=== PATIENT | female | born 1940 | race Caucasian/White ===

== ENCOUNTER → 2017-07-08 | Outpatient (REF) | payer MEDICARE, BC ==
[~2017-07-08] MED LIST: ALLO100T PO; BYST10TA2 PO; COUM2TAB22 PO; DULO1CAP2 PO; DULO30CA PO; FENT10PA TD; FURO40TA2 PO; FURO80TA2 PO; GLIM2TA PO; GLIM4TAB PO; HYDR-3719 PO; ISOS30TA4 PO; KEPP250T5 PO; LANS30CA PO; LEVO100T5 PO; LEVO200T4 PO; LEVO88TA3 PO; LOSA100T36 PO; LOVE0.6I2 SC; MONT10TA2 PO; SIMV20TA2 PO; SIMV40TA2 PO; SODI650T PO; [UNRECOGNIZED DRUG - CODE] IJ
[2017-07-08 18:46] LABS: INR 1.99
== END ==
LOC: M LAB REF 13:25
PROVIDERS: ATTEND Nurse Practitioner
DX: Z86.718 Personal history of other venous thrombosis and embolism (principal); Z79.01 Long term (current) use of anticoagulants

== ENCOUNTER → 2017-07-16 | Outpatient (REF) | payer MEDICARE, BC ==
[2017-07-16 18:18] LABS: INR 2.33
== END ==
LOC: M LABDRAWC 16:57
PROVIDERS: ATTEND Nurse Practitioner
DX: I48.0 Paroxysmal atrial fibrillation (principal); Z79.01 Long term (current) use of anticoagulants

== ENCOUNTER → 2017-07-23 | Outpatient (REF) | payer MEDICARE, BC ==
[2017-07-23 18:35] LABS: INR 2.72
== END ==
LOC: M LABDRAWC 16:18
PROVIDERS: ATTEND Nurse Practitioner
DX: I48.0 Paroxysmal atrial fibrillation (principal)

== ENCOUNTER 2017-08-06 12:59 | Emergency (ER) | payer MEDICARE, BC ==
[2017-08-06] MEDS ORDERED: FURO80TA2 PO (13:27)
[2017-08-06] MEDS ORDERED: LOSA100T36 PO (13:27)
[2017-08-06] MEDS ORDERED: ALLO100T PO (13:27)
[2017-08-06] MEDS ORDERED: LANS30CA PO (13:27)
[2017-08-06] MEDS ORDERED: GLIM2TA PO (13:27)
[2017-08-06] MEDS ORDERED: BYST10TA2 PO (13:27)
[2017-08-06] MEDS ORDERED: LEVO200T4 PO (13:27)
[2017-08-06] MEDS ORDERED: HYDR-3719 PO (13:27)
[2017-08-06] MEDS ORDERED: FENT10PA TD (13:27)
[2017-08-06] MEDS ORDERED: DULO30CA PO (13:27)
[2017-08-06] MEDS ORDERED: MONT10TA2 PO (13:27)
[2017-08-06] MEDS ORDERED: SIMV40TA2 PO (13:27)
[2017-08-06] MEDS ORDERED: [UNRECOGNIZED DRUG - CODE] IJ (13:27)
[2017-08-06] MEDS ORDERED: COUM2TAB22 PO (13:27)
--- NOTE | 2017-08-06 14:32 | REP ---
LEFT KNEE SERIES: Five views of the left knee performed. There is no evidence of acute fracture or dislocation. There is moderately severe medial joint space narrowing with subchondral sclerosis and spurring. There is a moderate joint effusion. Vascular calcifications are seen posteriorly. IMPRESSION: No acute fracture or dislocation. Degenerative changes. Joint effusion. Signed by Cj Wakefield MD 08/06/2017 05:08 P
[2017-08-06 15:02] VITALS: BP 185/82
== END 2017-08-06 15:40 | disposition home or self-care (01) ==
LOC: M ED 12:59
DX: S83.92XA Sprain of unspecified site of left knee, initial encounter (principal); X50.1XXA Overexertion from prolonged static or awkward postures, initial encounter; Y92.099 Unspecified place in other non-institutional residence as the place of occurrence of the external cause; Y93.89 Activity, other specified; Y99.9 Unspecified external cause status; I51.9 Heart disease, unspecified; E11.9 Type 2 diabetes mellitus without complications; Z79.4 Long term (current) use of insulin; Z79.899 Other long term (current) drug therapy; Z79.01 Long term (current) use of anticoagulants; Z88.8 Allergy status to other drugs, medicaments and biological substances; Z88.5 Allergy status to narcotic agent; Z88.1 Allergy status to other antibiotic agents

== ENCOUNTER 2017-08-17 13:59 | Inpatient (IN) | payer MEDICARE, BC ==
[~2017-08-17] VITALS: Ht 148.6 cm; Wt 93.6 kg
[~2017-08-17 13:59] MED LIST changes: -DULO1CAP2 PO; +FENTANYL REMOVAL DOCUMENTATION MISC XX SCH; -FURO40TA2 PO; -GLIM4TAB PO; -ISOS30TA4 PO; -KEPP250T5 PO; -LEVO100T5 PO; -LEVO88TA3 PO; -LOVE0.6I2 SC; -SIMV20TA2 PO; -SODI650T PO
[2017-08-17] MEDS ORDERED: LORazepam 2 MG/ML VIAL (J2060) As Ordered ONE (14:06)
[2017-08-17] MEDS ORDERED: LORazepam 2 MG/ML VIAL (J2060) IV STA (14:08)
[2017-08-17] MEDS ORDERED: LABETALOL HCL 100 MG/20 ML VIAL IV STA ×2 (14:39→16:29)
[2017-08-17 15:16] LABS: BASO # 0.1 10^3/uL (0.0-0.2); BASO % 0.5 % (0.0-1.0); EOS % 0.3 % (0.0-3.0); LYMPH # 1.2 10^3/uL (1.5-4.5); LYMPH % 10.8 % (24.0-44.0); MEAN CORPUSCULAR HGB CONC 32.3 g/dl (32.0-36.5); MEAN CORPUSCULAR VOLUME 89.8 fl (80.0-96.0); MONO # 0.5 10^3/uL (0.0-0.8); MONO % 4.4 % (0.0-5.0); NEUTROPHILS # 8.9 10^3/uL (1.8-7.7); PLATELET COUNT, AUTOMATED 185 10^3/uL (150-450); RED CELL DISTRIBUTION WIDTH 12.9 % (11.5-14.5); WHITE BLOOD COUNT 10.9 10^3/uL (4.0-10.0)
[2017-08-17 15:18] LABS: ADD MANUAL DIFFER NO; ADD MORPHOLOGY? NO; DIFF SLIDE NUMBER 139
[2017-08-17] MEDS ORDERED: cefTRIAXone SOD 1 GM in D5W 50 ML IV ONE (15:30)
[2017-08-17 15:46] LABS: METHADONE URINE NEGATIVE (NEGATIVE)
[2017-08-17 15:52] LABS: ALBUMIN 3.4 GM/DL (3.2-5.2); ALBUMIN/GLOBULIN RATIO 0.83 (1.00-1.93); ALKALINE PHOSPHATASE 109 U/L (45-117); ALT/SGPT 20 U/L (12-78); ANION GAP 9 MEQ/L (8-16); AST/SGOT 17 U/L (15-37); BILIRUBIN,DIRECT 0.1 MG/DL (0.0-0.2); BILIRUBIN,TOTAL 0.5 MG/DL (0.2-1.0); BLOOD UREA NITROGEN 25 MG/DL (7-18); CALCIUM LEVEL 8.2 MG/DL (8.8-10.2); CARBON DIOXIDE LEVEL 29 MEQ/L (21-32); CHLORIDE LEVEL 97 MEQ/L (98-107); CREATININE FOR GFR 1.44 MG/DL (0.55-1.02); GLOMERULAR FILTRATION RATE 37.8 (>39); POTASSIUM SERUM 3.9 MEQ/L (3.5-5.1); SODIUM LEVEL 135 MEQ/L (136-145); TOTAL PROTEIN 7.5 GM/DL (6.4-8.2)
[2017-08-17 15:56] LABS: GLUCOSE, FASTING 456 MG/DL (83-110)
[2017-08-17] MEDS ORDERED: FENT10PA TD (16:11)
[2017-08-17] MEDS ORDERED: SIMV20TA2 PO (16:11)
[2017-08-17] MEDS ORDERED: COUM2TAB22 PO (16:11)
[2017-08-17] MEDS ORDERED: LANS30CA PO (16:11)
[2017-08-17] MEDS ORDERED: LEVO88TA3 PO (16:11)
[2017-08-17] MEDS ORDERED: HYDR-3719 PO (16:11)
[2017-08-17] MEDS ORDERED: BYST10TA2 PO (16:11)
[2017-08-17] MEDS ORDERED: ALLO100T PO (16:11)
[2017-08-17] MEDS ORDERED: LEVO100T5 PO (16:11)
[2017-08-17] MEDS ORDERED: GLIM4TAB PO (16:11)
[2017-08-17] MEDS ORDERED: DULO1CAP2 PO (16:11)
[2017-08-17] MEDS ORDERED: SODI650T PO (16:11)
[2017-08-17] MEDS ORDERED: LOSA100T36 PO (16:12)
[2017-08-17] MEDS ORDERED: MONT10TA2 PO (16:12)
[2017-08-17] MEDS ORDERED: FURO40TA2 PO (16:14)
[2017-08-17] MEDS ORDERED: PHENYTOIN INJection 1,000 MG in NS 100 ML IV ONE (16:45)
[2017-08-17] MEDS ORDERED: FENTANYL REMOVAL DOCUMENTATION MISC XX SCH (17:30)
[2017-08-17] MEDS ORDERED: GLUCAGON FOR INJ 1 MG VIAL (J1610) SC PRN (17:45)
[2017-08-17] MEDS ORDERED: GLUCOSE 4 GM CHEW TABLET PO PRN (17:45)
[2017-08-17] MEDS ORDERED: LORazepam 2 MG/ML VIAL (J2060) IV PRN (17:45)
[2017-08-17] MEDS ORDERED: DEXTROSE 50% 50 ML SYRINGE IV PRN (17:45)
[2017-08-17] MEDS ORDERED: fentaNYL 75 MCG/HR PATCH TD ONE (18:00)
[2017-08-17] MEDS: LR 1,000 ML IV SCH (18:33)
[2017-08-17 19:45] LABS: INR 2.76
--- NOTE | 2017-08-17 20:40 | HPE ---
DATE OF ADMISSION: 08/17/2017 PRIMARY CARE PROVIDER: Unknown. CHIEF COMPLAINT: Seizures. HISTORY OF PRESENT ILLNESS: The patient is a 76-year-old female who was recently seen in the emergency room on 08/06/2017. At that time, she presented with left knee pain and was found to have a left knee sprain. She was provided with a brace. She was noted to have difficulty with ambulating and was discharged home to self care. Since that time, the patient has reportedly been tired and had malaise over the last 4 days. The patient, at the time of my examination, appears to be postictal. She follows some basic commands and answers yes or no to questions on occasion after yelling in her ear very loud and sternal rubs. She tells me that she has had some urinary symptoms of late, but otherwise denies any other complaints, such as bowel symptoms, cough or sick contacts. Reported emergency medical services (EMS) was called for the patient's malaise and en route she had a 45 second seizure. Upon her presentation in the emergency room, she did have another seizure that lasted 1 to 2 minutes. She did receive IV Ativan and has had no further seizure since then. At the present time, she is awake, occasionally makes eye contact, and, as mentioned, answers some questions yes or no. Otherwise, much of the history is obtained via review of the medical record and the emergency department provider's hand-off. PAST MEDICAL HISTORY: 1. Hypertension. 2. 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 3. Asthma. 4. Peripheral vascular disease. 5. Gastroesophageal reflux disease (GERD). 6. Diabetes mellitus. 7. Obesity. 8. Gout. 9. Mood disorder. 10. Hypothyroidism. 11. Dyslipidemia. 12. Chronic pain. HOME MEDICATIONS: - Lasix 80 mg daily - hydrocodone/acetaminophen 10/325 mg every 4 hours as needed for pain - bisoprolol 30 mg daily - allopurinol 100 mg daily - duloxetine 30 mg daily - Fentanyl 100 mcg transdermally every third day - glimepiride 8 mg daily - levothyroxine 108 mcg daily - losartan 100 mg daily - Singulair 10 mg at night - nebivolol 10 mg by mouth twice a day - simvastatin 20 mg by mouth at night - sodium bicarbonate 650 mg at night - Coumadin 2 mg as directed ALLERGIES: NEOSPORIN, BEE STINGS, MOLD, FEATHER, WOOL, DIAZIDE, CARDIZEM, PLENDIL, AMINOGLYCOSIDE, BACITRACIN, DILTIAZEM, HYDROCHLOROTHIAZIDE/TRIAMTERENE, MORPHINE, NEOMYCIN, PHENOL, POLYMYXIN B, LINEZOLID, LIRAGLUTIDE. PAST SURGICAL HISTORY: Hysterectomy, cholecystectomy, umbilical hernia repair, tubal ligation, cataract surgery. SOCIAL HISTORY: She is a . She is reportedly visiting here family here from [place]. FAMILY HISTORY: Noncontributory. REVIEW OF SYSTEMS: Negative other than history of present illness. PHYSICAL EXAMINATION: Blood pressure on arrival was 221/102, at the present time it is 141/64, heart rate 97, respiratory rate 16, oxygen saturation 97% on 2 liters nasal cannula. GENERAL: She is an obese, elderly, female lying flat in bed. She does not appear to be in any acute distress whatsoever; however, she is lethargic and appears postictal. HEENT: Pupils are equal, round and reactive to light. She has dry mucous membranes. No elevation in her central venous pressure. CARDIOVASCULAR EXAM: S1, S2. She was not tachycardic at the time of my examination. RESPIRATORY EXAM: Clear; however, poor respiratory effort. She was not cooperative with examination. ABDOMINAL EXAM: Obese. Bowel sounds present. The abdomen is soft and nontender. She does not recoil to palpation. EXTREMITIES: No clubbing, cyanosis or appreciable edema. LABORATORY STUDIES: WBC 10.5, hemoglobin 14.2, platelet count 185. Chemistry panel: Sodium 135, potassium 3.9, chloride 97, bicarbonate 29, BUN 25, creatinine 1.4, unclear what her baseline is. Fasting glucose is 456. One set of cardiac enzymes are negative. TSH within normal limits. Toxicology is positive for opiates, otherwise fairly unremarkable. UA was grossly abnormal with 168 WBCs, 2+ leukocyte esterase and 3+ bacteria. Urine culture is pending. One blood culture is pending. The patient did have a CT scan of her head, which revealed chronic changes. She did have a portable chest x-ray that was preliminary read as negative. ASSESSMENT AND PLAN: This is a 76-year-old female who presented status post seizure with an abnormal UA. 1. Seizure, the etiology remains unclear. There does not appear to be any new medications which are suspect. She does not have an alcohol history. Her electrolytes do not appear to be grossly abnormal that would cause this. I have ordered a stat MRI of the brain. She has received phenytoin in the emergency room. Contact Dr. Ross, the neurology service will see the patient in consultation. The patient was significantly hypertensive, it is possible that this is secondary to hypertensive encephalopathy. This could be related to a urinary tract infection (UTI) and may not have been tolerating orally and unable to keep her medications down. At this time, in the emergency room, she has received labetalol times two and her blood pressure is improved. We will continue her home medications orally as she is waking up and provide additional medications if needed. EEG has been ordered. We will have her admitted to the progressive care unit (PCU) with neuro checks. We will get a second set of blood cultures and continue to monitor cardiac enzymes. 2. Abnormal UA. As mentioned above, the patient may have a urinary tract infection. I will empirically cover her with ceftriaxone, which was started in the emergency room. She does have leukocytosis and grossly abnormal urinalysis. 3. Diabetes. Her fingerstick is uncontrolled at this time with an elevated glucose without an anion gap. I will place her on sliding scale insulin and consistent carbohydrate, 2-gram sodium diet. Continue her oral agents as well. 4. Chronic kidney disease. It is unclear what her baseline is. I suspect that this is likely chronic. She may be somewhat dehydrated. She has dry mucous membranes at this time. I will hold her diuretic and continue to monitor her renal function. 5. Gastroesophageal reflux disease (GERD). Continue with proton pump inhibitor. 6. Chronic pain. Continue with her fentanyl patch at a lower dose and her other opiate medications on standby as needed as she wakes up. I do not want to oversedate this patient. 7. Gout. Continue with allopurinol. 8. Hypothyroidism. Continue with levothyroxine. 9. Dyslipidemia. Continue with simvastatin. 10. History of deep vein thrombosis (DVT) and multiple DVTs and pulmonary embolisms. The patient is on Coumadin. I will check an INR. Titrate for a goal INR of 2 to 3. 11. Seasonal allergies. Continue with Singulair. DISPOSITION: The patient is admitted to the progressive care unit (PCU) to Dr. Anderson's service. Her clinical status is guarded.
--- NOTE | 2017-08-17 21:10 | REPUSA ---
MRI of the brain. Clinical history: seizure. Technique: Multiecho multiplanar MRI images of the brain were obtained without administration of cont rast. Diffusion weighted images with ADC mapping was also obtained. Findings: The ventricles and sulci are symmetric bilaterally. The brain parenchyma demonstrates scattered areas of T2 hyperintensity in the periventricular and subcortical white matter bilaterally. There is no mi dline shift, mass effect, or extra-axial fluid collection. The midline intracranial structures do not demonstrate any gross abnormalities. The cervical cranial junction is intact. The orbits are unremar kable. The visualized paranasal sinuses and mastoid air cells are clear. The osseous structures and s uperficial soft tissues are unremarkable. The vascular structures demonstrate appropriate flow voids. Impression: No acute hemorrhage or infarct. Findings are consistent with mild chronic small vessel is chemic disease and age-related atrophy.
[2017-08-17 22:57] VITALS: BP 148/63
[2017-08-17] MEDS: HumaLOG INSULIN (NovoLOG) PER UNIT SC SCH (23:38)
[2017-08-17] MEDS: SIMVASTATIN 20 MG TAB PO SCH (23:38)
[2017-08-17] MEDS: WARFARIN SOD 2 MG TAB PO SCH (23:38)
[2017-08-17] MEDS: MONTELUKAST 10 MG TAB PO SCH (23:38)
[2017-08-17] MEDS: NEBIVOLOL 5 MG TAB (BYSTOLIC) PO SCH (23:43)
[2017-08-18] VITALS (7 sets, daily range): BP systolic 122–176; BP diastolic 52–85
[2017-08-18] MEDS: LOSARTAN 50 MG TAB PO SCH ×2 (00:58→08:49)
[2017-08-18] MEDS: PANTOPRAZOLE 40MG INJ (PROTONIX) (C9113) IV SCH ×2 (00:58→08:49)
[2017-08-18] MEDS: SODIUM BICARBONATE 325 MG TAB PO SCH ×2 (01:00→23:32)
[2017-08-18] MEDS: PHENAZOPYRIDINE 100 MG TAB PO SCH ×3 (03:56→23:31)
[2017-08-18 04:02] LABS: MEAN CORPUSCULAR HEMOGLOBIN 29.1 pg (27.0-33.0); MEAN CORPUSCULAR HGB CONC 32.7 g/dl (32.0-36.5); MEAN CORPUSCULAR VOLUME 89.1 fl (80.0-96.0); RED CELL DISTRIBUTION WIDTH 13.1 % (11.5-14.5); WHITE BLOOD COUNT 12.6 10^3/uL (4.0-10.0)
[2017-08-18 04:23] LABS: CALCIUM LEVEL 8.4 MG/DL (8.8-10.2); CREATININE FOR GFR 1.37 MG/DL (0.55-1.02); POTASSIUM SERUM 3.5 MEQ/L (3.5-5.1)
[2017-08-18] MEDS: LEVOTHYROXINE 100MCG TABLET (0.1MG) PO SCH (06:33)
[2017-08-18] MEDS: LEVOTHYROXINE 88MCG TABLET (0.088 MG) PO SCH (06:33)
--- NOTE | 2017-08-18 07:36 | REP ---
REASON: Dyspnea and altered mental status. PRIORS: None. FINDINGS: The technique utilized in obtaining the radiograph has magnified the cardiac silhouette and accentuated the interstitial markings. The superior mediastinal structures are midline. The cardiac silhouette is unremarkable in size, shape, and position. The diaphragmatic surfaces of the lungs are regular, and the costophrenic angles are clear. The pulmonary sorto are clear. The imaged osseous structures are intact. IMPRESSION: There is no acute cardiopulmonary disease. Cardiomegaly cannot be ruled out due to technique. Signed by Praful Verma DO 08/18/2017 12:09 P
--- NOTE | 2017-08-18 07:56 | REP ---
REASON: Altered mental status. PRIORS: None. There is ventricular and sulcal prominence slightly advanced for the patient's age of 76 years. There is no evidence of an acute intracranial hemorrhagic or nonhemorrhagic event. There is no shift of the midline structures. The paranasal sinuses and mastoid air cells are clear. IMPRESSION: Cerebral and cerebellar atrophy. Deep white matter ischemic changes. No evidence of acute disease. Signed by Praful Verma DO 08/18/2017 12:10 P
[2017-08-18] MEDS: NEBIVOLOL 5 MG TAB (BYSTOLIC) PO SCH ×2 (08:49→23:31)
[2017-08-18] MEDS: DULoxetine 30 MG CAP (CYMBALTA) PO SCH (08:50)
[2017-08-18] MEDS: ALLOPURINOL 100 MG TAB PO SCH (08:50)
[2017-08-18] MEDS: GLIMEPIRIDE 2 MG TAB PO SCH (08:50)
[2017-08-18] MEDS: PERCOCET 5MG/325MG TAB PO PRN ×2 (08:51→16:43)
[2017-08-18] MEDS: HumaLOG INSULIN (NovoLOG) PER UNIT SC SCH ×4 (08:53→21:00)
[2017-08-18] MEDS: LR 1,000 ML IV SCH ×2 (08:53→21:10)
--- NOTE | 2017-08-18 09:00 | ECGEPIP ---
Stationary ECG Study [facility] - ED Test Date: 2017-08-17 Pat Name: KASIE GROSS Department: Room: - Gender: F Punching Machine Operator: MED : 1940 Requested By: JORGE Cannon Order Number: [id number] Reading MD: Nikunj Mehta Measurements Intervals [place] Rate: 103 P: 29 LA: 191 QRS: -35 QRSD: 89 T: -4 QT: 364 QTc: 477 Interpretive Statements SINUS TACHYCARDIA WITH BORDERLINE FIRST DEGREE AV BLOCK LEFT VENTRICULAR HYPERTROPHY AND ST-T CHANGE INFERIOR MYOCARDIAL INFARCTION, OF INDETERMINATE AGE NO PRIORS Electronically Signed On 08-18-2017 9:00:12 EDT by Nikunj Mehta
--- NOTE | 2017-08-18 10:37 | ECGEPIP ---
Stationary ECG Study [facility] Test Date: 2017-08-18 Pat Name: KASIE GROSS Department: Room: [place] [address] Gender: F Data Mining Analyst: APOLINAR : 1940 Requested By: MICHA DANIEL Order Number: [id number] Reading MD: Sheba Leary Measurements Intervals [place] Rate: 80 P: -24 NM: 164 QRS: -31 QRSD: 90 T: -17 QT: 393 QTc: 456 Interpretive Statements SINUS RHYTHM LEFT AXIS DEVIATION VOLTAGE CRITERIA FOR Left ventricular hypertrophy PRWP NONSPECIFIC ST & T-WAVE ABNORMALITY LATERALLY IMPROVED C/W 08/17/17 Electronically Signed On 08-18-2017 10:37:00 EDT by Sheba Leary
--- NOTE | 2017-08-18 12:39 | IPNPDOC ---
Subjective Date Seen The patient was seen on 08/18/17. Subjective Chief Complaint/HPI The patient is a 76-year-old female admitted with a reason for visit of Seizure. Patient was seen and examined today sitting in a chair next to bedside. She was visibly upset and crying at the start of the exam because she could not get a hold of her family due to the fact that her cell phone was and she had no access to their phone numbers. She calmed down quickly and stated that she remembered coming to the hospital yesterday, but that she never had a seizure. When asked why she was brought to the hospital she stated that her sister was worried about her because she had not gotten up the day before, and made her come in. She stated that she was treated for a UTI 2 weeks ago with a 10 day course of Levaquin prescribed by [facility], and is still complaining of dysuria today. She states she slept well last night and had no acute complaints other than her concern over reaching her family members. Her nurse reported the patient did not sleep well last night secondary to pain ranked 10/10 in right flank and suprapubic areas, patient's Fernandez was removed last night and she refused to have it reinserted. No events on telemetry. ENT: Denies: Head Aches Pulmonary: Denies: Pleuritic Chest Pain Cardiovascular: Denies: Chest Pain, Lt Headedness Gastrointestinal: Reports: Nausea, Abdominal Pain (suprapubic), Denies: Vomiting, Constipation (colostomy) Musculoskeletal: Reports: Back Pain (right flank ) Psych: Reports: Anxiety Objective Physical Examination General Exam: Positive: Alert, Cooperative, Moderate Distress Eye Exam: Positive: Conjunctiva & lids normal, Negative: Ptosis ENT Exam: Positive: Atraumatic, Mucous membr. moist/pink Neck Exam: Positive: Supple, Negative: JVD Chest Exam: Positive: Clear to auscultation, Normal air movement, Negative: Rales, Rhonchi, Wheezing Heart Exam: Positive: Rate Normal, Regular Rhythm, Normal S1, Normal S2 Telemetry: Positive: Sinus Abdomen Exam: Positive: Normal bowel sounds, Soft, Tenderness (suprapubic region), Other (colostomy bag in place on right ) Extremity Exam: Positive: Normal pulses, Negative: Tenderness (negative rivera sign BL) Skin Exam: Positive: Nl turgor and temperature Psych Exam: Positive: Anxiety, Oriented x 3, Negative: Mood NL, Memory Intact Other physical findings CVA tenderness on right Assessment /Plan Assessment 1. Seizure. Patient had two witnessed seizures yesterday, one en route to [facility] and one in the ED. Patient has not had any seizures since admission. She is being monitored on telemetry, which has been sinus rhythm. Per patient, she has recently completed a 10 day course of Levaquin for a UTI. She is still complaining of dysuria, and her UA is indicative of a current UTI. She is also now complaining of intense right flank pain with a positive Marco Antonio's punch sign, demonstrating right CVA tenderness. She has been afebrile since admission, but her white count has been trending upwards from 10.9 yesterday to 12.6 today. Blood cultures and urine cultures are pending. Her seizures could be secondary to sepsis from a complicated UTI/pyelonephritis. Will continue broad spectrum treatment with Ceftriaxone until cultures return with sensitivities. Pyridium as needed for dysuria. Lorazepam as needed for seizures. Sodium levels have been within normal limits. An EEG was performed this morning, results pending. Neurology has been consulted. Appreciate their assistance. 2. UTI. As described above, patient had recently completed a course of Levaquin and is still experiencing symptoms of a UTI. Nursing has reported her urine as "thick and pink." Her Fernandez was removed last night by nursing and patient refused to have another reinserted. She reports she is able to urinate on her own. Bladder scans with straight cath for >300ml residual have been ordered. Patient is being treated empirically with Ceftriaxone until culture and sensitivities come back. 3. Elevated troponin. EKG performed yesterday in the ED demonstrates a borderline 1st degree AV block and an inferior NH of indeterminant age. Echo ordered to check if there is any wall motion abnormality. 4. Mental status changes. Patient is fully oriented to person, place, and time, however she does not remember having her seizures, her pain last night, or being examined this morning. Her confusion may be secondary to sepsis from her unresolving UTI. MMSE will be performed later today. 5. Kidney injury, likely CKD. Her GFR is improving at 40 today from 37.8 yesterday. BUN and Cr are elevated at 32 and 1.37, respectively. Her baseline renal function is unknown. It is suspected the kidney injury may be chronic. Continue trending BUN, Cr, GFR. 6. Diabetes Mellitus. Fasting blood glucose was 456 yesterday. Today it is 220 , without an elevated anion gap. Patient is on a consistent carbohydrate diet. An A1c has been ordered. Continue home medications and insulin. 7. GERD. Continue home Protonix. 8. Chronic pain. At the time of exam patient was not complaining of any pain, however nursing reported she was in a significant amount of pain last night amenable to Percocet. Continue home Fentanyl patch and Percocet as needed. Will get CT of abdomen and pelvis without contrast to make sure there is no other etiology escalating the pain. 9. Gout. Continue home allopurinol. 10. Hypothyroid. Continue home Synthroid. 11. Dyslipidemia. Continue home statin. 12. Hypertension. Upon admission her blood pressure was 221/102. Patient states she takes her blood pressure medications regularly. This morning her blood pressure was 123/84. Continue home Losartan and Nebivolol. 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 Continue home Coumadin to therapeutic INR between 2-3. Yesterday patient's INR was at 2.76. 14. Unspecified mood disorder. Continue home Duloxetine. 15. DVT prophylaxis. Therapeutic Coumadin, knee-high sequentials. Plan/VTE VTE Prophylaxis Ordered?: Yes (coumadin) Plan/Urinary Catheter Urinary Catheter: D/C Fernandez VS, I&O, 24H, Fishbone Vital Signs/I&O Vital Signs Date Time Temp Pulse Resp B/P (MAP) Pulse Ox O2 Delivery O2 Flow Rate FiO2 08/18/17 08:51 18 08/18/17 08:00 97.8 73 126/52 (76) 96 Room Air 08/18/17 04:00 2.0 I&O- Last 24 Hours up to 6 AM 08/19/17 05:59 Intake Total 375 ml Output Total 100 ml Balance 275 ml Laboratory Data 24H LABS Laboratory Tests 2 08/17/17 14:24: Bedside Glucose (Misc Panel) 440H 08/17/17 14:48: Immature Granulocyte % (Auto) 2.0H, White Blood Count 10.9H, Red Blood Count 4.90, Hemoglobin 14.2, Hematocrit 44.0, Mean Corpuscular Volume 89.8, Mean Corpuscular Hemoglobin 29.0, Mean Corpuscular Hemoglobin Concent 32.3, Red Cell Distribution Width 12.9, Platelet Count 185, Neutrophils (%) (Auto) 82.0H, Lymphocytes (%) (Auto) 10.8L, Monocytes (%) (Auto) 4.4, Eosinophils (%) (Auto) 0.3, Basophils (%) (Auto) 0.5, Neutrophils # (Auto) 8.9H, Lymphocytes # (Auto) 1.2L, Monocytes # (Auto) 0.5, Eosinophils # (Auto) 0.0, Basophils # (Auto) 0.1, Immature Granulocyte # (Auto) 0.2H, Nucleated Red Blood Cells % (auto) 0.0, Anion Gap 9, Glomerular Filtration Rate 37.8L, Calcium Level 8.2L, Aspartate Amino Transf (AST/SGOT) 17, Alanine Aminotransferase (ALT/SGPT) 20, Alkaline Phosphatase 109, Total Bilirubin 0.5, Direct Bilirubin 0.1, Total Creatine Kinase 41, Creatine Kinase MB 1.9, Creatine Kinase MB Relative Index 4.63H, Troponin I < 0.02, Total Protein 7.5, Albumin 3.4, Albumin/Globulin Ratio 0.83L , Thyroid Stimulating Hormone (TSH) 1.140, Ethyl Alcohol Level 0.005 08/17/17 14:55: Urine Appearance HAZY, Urine Color MINNIE, Urine pH 5.0, Urine Specific [place] 1.024, Urine Protein 2+H, Urine Glucose (UA) 3+H, Urine Ketones NEGATIVE, Urine Urobilinogen 2.0H, Urine Bilirubin NEGATIVE, Urine Leukocyte Esterase 2+H, Urine Blood 2+H, Urine Nitrite POSITIVE, Urine WBC (Auto) 168H, Urine RBC (Auto ) 17H, Urine Hyaline Casts (Auto) 0, Urine Bacteria (Auto) 3+H, Urine Squamous Epithelial Cells 0, Urine Sperm (Auto) , Urine Amphetamines Screen NEGATIVE, Urine Benzodiazepines Screen NEGATIVE, Urine Opiates Screen POSITIVEH, Urine Methadone Screen NEGATIVE, Urine Barbiturates Screen NEGATIVE, Urine Phencyclidine Screen NEGATIVE, Urine Cocaine Metabolite Screen NEGATIVE, Urine Cannabinoids Screen NEGATIVE 08/17/17 19:18: Prothrombin Time 30.3H, Prothromb Time International Ratio 2.76, Lipase 173 08/17/17 21:50: Troponin I 0.11#H 08/17/17 23:12: Bedside Glucose (Misc Panel) 391H 08/18/17 03:12: Troponin I 0.27#H, Anion Gap 9, Glomerular Filtration Rate 40.0, Blood Urea Nitrogen 32H, Creatinine 1.37H, Sodium Level 139, Potassium Level 3.5, Chloride Level 100, Carbon Dioxide Level 30, Calcium Level 8.4L 08/18/17 08:30: Troponin I 0.20#H, Total Creatine Kinase 55, Creatine Kinase MB 2.7, Creatine Kinase MB Relative Index 4.90H CBC/BMP Laboratory Tests 08/17/17 14:48 Red Blood Count 4.90, Mean Corpuscular Volume 89.8, Mean Corpuscular Hemoglobin 29.0, Mean Corpuscular Hemoglobin Concent 32.3, Red Cell Distribution Width 12.9 , Neutrophils (%) (Auto) 82.0 H, Lymphocytes (%) (Auto) 10.8 L, Monocytes (%) ( Auto) 4.4, Eosinophils (%) (Auto) 0.3, Basophils (%) (Auto) 0.5, Neutrophils # ( Auto) 8.9 H, Lymphocytes # (Auto) 1.2 L, Monocytes # (Auto) 0.5, Eosinophils # ( Auto) 0.0, Basophils # (Auto) 0.1 08/18/17 03:12 Red Blood Count 4.57, Mean Corpuscular Volume 89.1, Mean Corpuscular Hemoglobin 29.1, Mean Corpuscular Hemoglobin Concent 32.7, Red Cell Distribution Width 13.1 , Calcium Level 8.4 L Microbiology Microbiology 08/17/17 Blood Culture, Received Pending 08/17/17 Blood Culture, Received Pending 08/17/17 Blood Culture, Received Pending 08/17/17 Urine Culture, Received Pending GME ATTESTATION GME ATTESTATION My preceptor for this patient encounter was physically present in the building during the encounter and was fully available. As needed, all aspects of the patient interview, examination, medical decision making process, and medical care plan development were reviewed and approved by the preceptor. Preceptor is aware and concurs with the plan as stated in the body of this note and will attest to such by his/her cosignature. ANIL ARELLANO DO Aug 18, 2017 10:26
--- NOTE | 2017-08-18 13:41 | REP ---
CT ABDOMEN PELVIS WITHOUT IV OR ORAL CONTRAST: HISTORY: Lower abdominal pain. CT FINDINGS: Preliminary digital child adolescent care radiograph shows an unremarkable bowel gas pattern. The lung bases are clear except for some mild bibasilar fibrosis. The liver and the spleen are normal in size homogeneous in texture. There are clips in the gallbladder fossa post cholecystectomy. No adrenal lesion is seen on either side. No pancreatic abnormality is observed. Vascular calcification is noted. Mild left renal atrophy is seen. No hydronephrosis is observed. There is a 3 mm calculus in the left renal pelvis. No bladder calculus is seen. The patient is status post hysterectomy. A short but normal appearing appendix is seen in the pelvis. There is a colostomy in the right upper quadrant with a parastomal hernia containing a portion of this stomach body and loops of unobstructed appearing colon. No small or large bowel dilation is seen. There is a ventral hernia below the umbilicus, which is broad-based and contains large and small bowel loops again without evidence of obstruction. No bony destructive lesion is seen. There are some degenerative changes in the lumbar spine. IMPRESSION: Status post colostomy right upper quadrant with peristomal hernia containing stomach and large intestine. Ventral hernia and below the level of the umbilicus anteriorly. No evidence of obstruction. There is a 3 mm nonobstructive calculus in the renal pelvis on the left. No acute intra-abdominal abnormality. Signed by Silver Schmitz MD 08/18/2017 02:14 P
[2017-08-18] MEDS: cefTRIAXone SOD 1 GM in D5W 50 ML IV SCH (16:42)
[2017-08-18] MEDS: WARFARIN SOD 2 MG TAB PO SCH (16:43)
--- NOTE | 2017-08-18 18:00 | EEG ---
DATE OF PROCEDURE: 08/18/2017 REFERRING PHYSICIAN: Dr. Vicente Anderson DIAGNOSIS: Seizure. EEG NUMBER: [id number] HISTORY: Patient is a 76-year-old woman who was admitted at [facility] due to seizures. She was found to have severe hypertension at the time of her admission. She had two seizures. This EEG was done to rule out epileptic potential. She is currently taking labetalol, fentanyl, Ativan, Dilantin, ceftriaxone, glimepiride, Cymbalta, simvastatin, etc. TECHNICAL DESCRIPTION: This digital EEG was recorded by 21 scalp, ear and two EKG electrodes and was reviewed in bipolar and referential montages following reformatting in 10-20 international electrode placement system. INTERPRETATION: The patient was noted to be in awake and drowsy states during this EEG. Resting awake background rhythm consisted of 6 Hz theta activity measuring 15-40 microvolts in amplitude. Stage I and II sleep were reviewed and were symmetric bilaterally. Hyperventilation could not be performed. Photic stimulation remained unremarkable. EKG revealed normal sinus rhythm. Right central and parietal intermittent delta slowing and epileptiform abnormalities and discharges were noted. CONCLUSION: This EEG in awake, drowsy states, stage I and II sleep is abnormal due to presence of right central and parietal intermittent slowing and epileptiform discharges consistent with focal cortical, structural or functional abnormality with epileptic potential. Clinical correlation is recommended. Edited 08/18/2017
[2017-08-18] MEDS ORDERED: risperiDONE 0.5 MG TAB PO PRN (18:30)
[2017-08-18] MEDS ORDERED: LORazepam 1 MG TAB PO ONE (18:30)
--- NOTE | 2017-08-18 20:11 | ECHO ---
DATE OF PROCEDURE: 08/18/2017 REFERRING PHYSICIAN: Dr. Anderson. Study was performed on 08/18/2017 for indication hypertensive heart disease. The patient measures 154 cm and weighs 84 kg. DIMENSIONS: IVS: 1.4 LV: 3.7 LVPW: 1.4 LA: 3.5 Aorta: 3.2 E prime septal: 3.8 cm/s E prime lateral: 5.3 cm/s IVC: 0.6 FINDINGS: The study is of very limited technical quality with only poor visualization of ventricles and valves. Left ventricle is of normal size and hyperdynamic contractility. I estimate left ventricular ejection fraction (LVEF) 65-70%. I certainly cannot rule out segmental wall motion abnormalities but it seems unlikely. Right ventricle was poorly visualized but appears grossly normal. Both atria appear grossly normal. Aortic valve is sclerotic but the visualization was poor and I cannot comment much more on its structure, same applies for mitral valve - it has some degenerative abnormalities but mobility seems to be grossly preserved. Tricuspid valve appears normal. Pulmonic valve was not visualized. Small amount of pericardial fat pad is noted. Inferior vena cava is normal caliber. Aortic root is normal. Aortic arch and abdominal aorta were not seen. Doppler interrogation reveals no aortic stenosis and trivial insufficiency. There is also no significant mitral valve disease. Mild tricuspid insufficiency is seen. Calculated pulmonary artery pressure is at least in 30s corresponding to mild pulmonary hypertension. Pulmonic valve was not well seen. Mitral inflow pattern and tissue Doppler imaging of mitral annulus revealed grade 1 diastolic dysfunction. CONCLUSIONS: 1. The study is of poor technical quality. 2. Normal left ventricular (LV) size with mild to moderate left ventricular hypertrophy (LVH) and hyperdynamic LV systolic function. Grade 1 diastolic dysfunction. 3. No significant valvular disease. 4. Normal central venous pressure and likely mild pulmonary hypertension. COMMENT: Subacute bacterial endocarditis (SBE) prophylaxis is not recommended. The study is consistent with hypertensive heart disease.
--- NOTE | 2017-08-18 23:24 | CR ---
DATE OF CONSULTATION: 08/18/2017 REASON FOR CONSULTATION: New onset seizure. HISTORY OF THE PRESENT ILLNESS: Luann Solorio is a 76-year-old female with recent hospitalization for difficulty ambulating. During the hospital ride, the patient was noted to have generalized tonic-clonic seizure lasting about 45 seconds with a recurrent seizure in the emergency department lasting about 1-2 minutes. The patient was given Ativan, and the seizure activity did stop. So far, the patient did have an MRI the brain showing mild small vessel ischemic disease without any stroke. Age-related atrophy was noted. The patient had a urine toxicology positive for opiates for which she is prescribed. Her urinalysis was positive with positive nitrite, leukocyte esterase, WBCs were elevated with bacteria of 3+. The patient was started on ceftriaxone. The patient did have elevated troponins, which has come down and are being monitored closely. Her hemoglobin A1c is significantly elevated at 9.6. The patient had slightly elevated creatinine and BUN. The patient herself states that she has never had seizures in the past. She does have waxing, waning symptoms of confusion while in the hospital and was noted to accidentally pull out her colostomy bag. The patient is currently in [facility] for safety prevention. PAST MEDICAL HISTORY: Hypertension. 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 Asthma. Peripheral vascular disease. Gastroesophageal reflux disease. Diabetes mellitus. Obesity. Gout. Mood disorder. Hypothyroidism. Dyslipidemia. Chronic pain. HOME MEDICATIONS: - Lasix 80 mg by mouth daily - hydrocodone/acetaminophen 10/325 mg every 4 hours as needed pain - bisoprolol 30 mg by mouth daily - allopurinol 100 mg by mouth daily - duloxetine 30 mg by mouth daily - fentanyl 100 mcg transdermal patch every 72 hours - glimepiride 8 mg by mouth daily - levothyroxine 108 mcg by mouth daily - losartan 100 mg by mouth daily - Singulair 10 mg by mouth nightly - nebivolol 10 mg by mouth twice a day - simvastatin 20 mg by mouth nightly - sodium bicarbonate 650 mg by mouth nightly - Coumadin 2 mg by mouth as directed ALLERGIES: NEOSPORIN, CARDIZEM, DIAZIDE, PLENDIL, AMINOGLYCOSIDES, BACITRACIN, DILTIAZEM, HYDROCHLOROTHIAZIDE/TRIAMTERENE, MORPHINE, NEOMYCIN, PHENOL, POLYMYXIN B, LINEZOLID, LIRAGLUTIDE. BEE STINGS, MOLD, FEATHERS, WOOL. PAST SURGICAL HISTORY: Hysterectomy. Cholecystectomy. Umbilical hernia repair. Tubal ligation. Cataract surgery. SOCIAL HISTORY: The patient denies use any tobacco, alcohol or illicit drugs. FAMILY HISTORY: Noncontributory. REVIEW OF SYSTEMS: 14-point review of systems obtained and is negative except as per history of the present illness. PHYSICAL EXAMINATION: Blood pressure is 148/56, pulse rate 74, respiratory rate is 18, oxygenation is 95% on room air, temperature is 98 degrees Fahrenheit. The patient is alert, oriented to person, place and time and location. The patient is cooperative during the examination. Pupils are 2-1/2 mm, round, reactive to light. Extraocular movements are intact in all directions. Sensation V1, V2, V3 is intact to light touch. No facial asymmetry to activation. Palate elevates symmetrically. Tongue is midline. No weakness of sternocleidomastoids bilaterally. There is no pronator drift. Strength is 5/5 including bilateral deltoids, biceps, triceps, iliopsoas, quadriceps, anterior tibialis. Sensory is intact to light touch in all four extremities. Coordination: Normal [id number] without any signs of ataxia or dysmetria. There is no tremor. Seizure activity was not noted during the encounter. ASSESSMENT: 1. New onset generalized tonic-clonic seizure. 2. EEG completed earlier today is abnormal with epileptic potential in the central and parietal region. 3. Underlying urinary tract infection, currently on ceftriaxone. 4. Elevated troponins, rule out myocardial infarction. PLAN: 1. Start levetiracetam 500 mg by mouth twice a day in the setting of new onset seizure and abnormal EEG. 2. Continue treating underlying urinary tract infection as per primary care, continue supportive care. The patient was initially noted to have severely high blood pressure with systolic 221 over diastolic 102 during the emergency room stay. Presently, her blood pressure is well controlled. There does not appear to be a stroke. The patient does appear to have some waxing and waning mental status changes, possibly delirium in the setting of urinary tract infection, new antibiotics. 3. Recommend physical therapy (PT), occupational therapy (OT) evaluation.
[2017-08-18] MEDS: levETIRAcetam 250MG TABLET (KEPPRA) PO SCH (23:30)
[2017-08-18] MEDS: MONTELUKAST 10 MG TAB PO SCH (23:31)
[2017-08-18] MEDS: SIMVASTATIN 20 MG TAB PO SCH (23:32)
[2017-08-19] VITALS (9 sets, daily range): BP systolic 138–188; BP diastolic 68–100; PULSE 80
[2017-08-19] MEDS ORDERED: LORazepam 2 MG/ML VIAL (J2060) IM PRN (00:15)
[2017-08-19 05:32] LABS: MEAN CORPUSCULAR HEMOGLOBIN 28.8 pg (27.0-33.0); MEAN CORPUSCULAR VOLUME 87.4 fl (80.0-96.0); RED CELL DISTRIBUTION WIDTH 12.9 % (11.5-14.5); WHITE BLOOD COUNT 7.9 10^3/uL (4.0-10.0)
[2017-08-19] MEDS: LEVOTHYROXINE 100MCG TABLET (0.1MG) PO SCH (05:44)
[2017-08-19] MEDS: LEVOTHYROXINE 88MCG TABLET (0.088 MG) PO SCH (05:44)
[2017-08-19 05:57] LABS: CALCIUM LEVEL 8.1 MG/DL (8.8-10.2); CREATININE FOR GFR 1.02 MG/DL (0.55-1.02); GLOMERULAR FILTRATION RATE 56.2 (>39); POTASSIUM SERUM 3.2 MEQ/L (3.5-5.1)
[2017-08-19] MEDS ORDERED: POTASSIUM CHLORIDE 10 MEQ SR TABLET PO ONE ×2 (06:30→09:00)
[2017-08-19] MEDS: PANTOPRAZOLE 40MG INJ (PROTONIX) (C9113) IV SCH (09:00)
[2017-08-19] MEDS: levETIRAcetam 250MG TABLET (KEPPRA) PO SCH ×2 (09:01→20:55)
[2017-08-19] MEDS: ALLOPURINOL 100 MG TAB PO SCH (09:01)
[2017-08-19] MEDS: LOSARTAN 50 MG TAB PO SCH (09:01)
[2017-08-19] MEDS: DULoxetine 30 MG CAP (CYMBALTA) PO SCH (09:01)
[2017-08-19] MEDS: HumaLOG INSULIN (NovoLOG) PER UNIT SC SCH ×4 (09:02→20:55)
[2017-08-19] MEDS: PERCOCET 5MG/325MG TAB PO PRN ×2 (09:03→18:02)
[2017-08-19] MEDS: NEBIVOLOL 5 MG TAB (BYSTOLIC) PO SCH ×2 (09:04→20:55)
[2017-08-19] MEDS: PHENAZOPYRIDINE 100 MG TAB PO SCH ×2 (09:04→20:54)
[2017-08-19] MEDS: GLIMEPIRIDE 2 MG TAB PO SCH (09:04)
[2017-08-19] MEDS: LR 1,000 ML IV SCH ×2 (09:05→23:50)
--- NOTE | 2017-08-19 11:19 | IPNPDOC ---
Subjective Date Seen The patient was seen on 08/19/17. Subjective Chief Complaint/HPI The patient is a 76-year-old female admitted with a reason for visit of Seizure. Patient was seen and examined this morning laying in bed. Patient was very drowsy this morning and fell asleep several times during the exam, sometimes slurring her words. She was re-examined a few hours later and was alert, awake, oriented x3, and completely responsive. She states she slept well last night and had no acute complaints, stating that her nausea and flank pain are improving. She states she does not remember much of yesterday. Her nurse states that she had waxing and waning periods of agitation and confusion. As per nurse, yesterday patient removed her colostomy and IV line and was extremely aggitionsm, she was was given 1mg of Ativan yesterday and was scheduled Risperdal 0.5mg qhs. Patient is more cooperative this AM. There were no events on telemetry, which was sinus rhythm through the night. General: Denies: Normal Appetite ENT: Denies: Head Aches Pulmonary: Denies: Dyspnea, Cough Cardiovascular: Denies: Chest Pain Gastrointestinal: Reports: Nausea (improving from yesterday ), Denies: Vomiting, Abdominal Pain Genitourinary: Reports: Frequency, Denies: Dysuria Musculoskeletal: Reports: Back Pain (right flank pain improving from yesterday) Objective Physical Examination General Exam: Positive: Cooperative, No Acute Distress, Negative: Alert Eye Exam: Positive: Conjunctiva & lids normal, Negative: Ptosis ENT Exam: Positive: Atraumatic, Mucous membr. moist/pink Neck Exam: Positive: Supple, Negative: JVD Chest Exam: Positive: Wheezing (posterior BL ), Negative: Clear to auscultation, Rales, Rhonchi Heart Exam: Positive: Rate Normal, Regular Rhythm, Normal S1, Normal S2, Negative: Murmurs Telemetry: Positive: Sinus Abdomen Exam: Positive: BS Hyperactive, Soft, Other (colostomy bag in place in RUQ), Negative: Tenderness Extremity Exam: Positive: Normal pulses, Tenderness (tenderness to palpation of right calf, pt unable to perform [place] test), Negative: Edema, Swelling Skin Exam: Positive: Nl turgor and temperature Psych Exam: Negative: Memory Intact Assessment /Plan Assessment 1. Seizure. Patient had two witnessed seizures on 08/17, one en route to [facility] and one in the ED. Patient has not had any seizures since admission. She is being monitored on telemetry, which has been sinus rhythm. Per patient, she has recently completed a 10 day course of Levaquin for a UTI. She is still complaining of dysuria, and her UA is indicative of a current UTI. Her right flank and suprapubic pain is improved from yesterday. She has been afebrile since admission, and her white count today is 7.9, trending down from 12.6 yesterday. Urine cultures are negative, blood cultures reveal no growth after 24 hours. Her seizures may be secondary to sepsis from a UTI/pyelonephritis. Will continue broad spectrum treatment with Ceftriaxone. Pyridium as needed for dysuria. Lorazepam as needed for seizures. Sodium levels have been within normal limits. Epilepsy is not being r/o as a possibility. An EEG performed yesterday morning reveals focal abnormalities in the right central and parietal regions with epileptic potential. Neurology has been consulted and has started patient on Levetiracetam 500mg BID PO. Appreciate their assistance. 2. UTI. As described above, patient had recently completed a course of Levaquin and is still experiencing symptoms of a UTI. Urine cultures are negative. Blood cultures are still pending. Nursing has reported her urine as "thick and pink." Her Fernandez was removed on 08/17 by nursing and patient refused to have another reinserted. She reports she is able to urinate on her own. Bladder scans with straight cath for >300ml residual have been ordered. Patient is being treated empirically with Ceftriaxone. Will continue to treat the patient because of her UTI symptoms on admission for 5 days. 3. Elevated troponin. Normalizing as of this morning at .05 from .14 yesterday afternoon. EKG performed 08/17 in the ED demonstrates a borderline 1st degree AV block and an inferior SD of indeterminant age. A repeat EKG performed yesterday reveals sinus rhythm, left axis deviation, left ventricular hypertrophy (LVH), poor r-wave progression, and nonspecific ST and T-wave abnormalities laterally improved from 08/17. Echo performed yesterday revealed normal left ventricular size with mild-moderate LVH, grade 1 diastolic dysfunction, no significant valvular disease, normal central venous pressure, and likely pulmonary hypertension. However, it was noted that the study was of poor technical quality. Troponin has been trending down as of today, with no evidence of acute cardiac pathology on EKG or echocardiogram it is likely that the elevation could be due to her seizure activity. 4. Mental status changes. This morning patient was difficult to keep awake during exam, however a few hours later she was completely coherent, awake, and responsive. She does not remember becoming agitated and removing her colostomy bag and IV lines last night. Her confusion may be secondary to sepsis from her unresolved UTI. MMSE performed yields a score of 24, which is abnormal for a person of college education, yet does not imply cognitive impairment. 5. Kidney injury, likely CKD. Her GFR has been trending upwards since Friday 37.8 to 56.2 today. BUN and Cr have been trending downwards from 25 and 1.44, respectively, to 24 and 1.02, respectively. Her baseline renal function is unknown. It is suspected the kidney injury may be chronic. Continue trending BUN, Cr, GFR. 6. Diabetes Mellitus. Fasting blood glucose was 220 yesterday. Today it is 199 , without an elevated anion gap. Patient is on a consistent carbohydrate diet. Her A1c is elevated at 9.6. Patient refused her insulin yesterday. Educate on the importance of compliance and keep encouraging medication compliance. Continue home medications and insulin. 7. GERD. Continue home Protonix. 8. Chronic pain. At the time of exam patient was not complaining of any pain. Last dose of Ativan was 10/9 at 18:24. Last dose of Percocet was 10/9 at 16: 43. Fentanyl patch is still in place. Will consider decreasing dose of Ativan, given her level of responsiveness on her first exam. CT of abdomen and pelvis was performed yesterday after patient was complaining of right flank and suprapubic pain. It revealed no acute intra-abdominal pathology. 9. Gout. Continue home allopurinol. 10. Hypothyroid. Continue home Synthroid. 11. Dyslipidemia. Continue home statin. 12. Hypertension. Upon admission her blood pressure was 221/102. Patient states she takes her blood pressure medications regularly. This morning her blood pressure was 147/72. Continue home Losartan and Nebivolol. 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 Continue home Coumadin to therapeutic INR between 2-3. On 08/17 patient's INR was at 2.76. Today patient is complaining of left calf tenderness on palpation, no erythema/swelling was observed. We will recheck her INR and observe for now. 14. Unspecified mood disorder. Continue home Duloxetine. 15. DVT prophylaxis. Therapeutic Coumadin, knee-high sequentials. 16. PT OT consults- Will evaluate and treat. Plan/VTE VTE Prophylaxis Ordered?: Yes (coumadin) Plan/Urinary Catheter Urinary Catheter: D/C Fernandez VS, I&O, 24H, Fishbone Vital Signs/I&O Vital Signs Date Time Temp Pulse Resp B/P (MAP) Pulse Ox O2 Delivery O2 Flow Rate FiO2 08/19/17 05:00 97.3 74 18 147/72 (97) 96 Room Air 08/18/17 04:00 2.0 Laboratory Data 24H LABS Laboratory Tests 2 08/18/17 11:34: Bedside Glucose (Misc Panel) 341H 08/18/17 15:48: Total Creatine Kinase 91, Creatine Kinase MB 2.9, Creatine Kinase MB Relative Index 3.18, Troponin I 0.14#H 08/18/17 16:33: Bedside Glucose (Misc Panel) 117H 08/18/17 22:19: Bedside Glucose (Misc Panel) 164H 08/19/17 00:09: Total Creatine Kinase 79, Creatine Kinase MB 2.6, Creatine Kinase MB Relative Index 3.29, Troponin I 0.05# 08/19/17 05:08: Anion Gap 9, Glomerular Filtration Rate 56.2, Blood Urea Nitrogen 24H, Creatinine 1.02, Sodium Level 137, Potassium Level 3.2L, Chloride Level 99, Carbon Dioxide Level 29, Calcium Level 8.1L CBC/BMP Laboratory Tests 08/19/17 05:08 Red Blood Count 4.20, Mean Corpuscular Volume 87.4, Mean Corpuscular Hemoglobin 28.8, Mean Corpuscular Hemoglobin Concent 33.0, Red Cell Distribution Width 12.9 , Calcium Level 8.1 L Microbiology Microbiology 08/17/17 Blood Culture - Preliminary, Resulted No growth after 24 hours . All specim... 08/17/17 Blood Culture - Preliminary, Resulted No growth after 24 hours . All specim... 08/17/17 Blood Culture - Preliminary, Resulted No growth after 24 hours . All specim... 08/17/17 Urine Culture - Final, Complete GME ATTESTATION GME ATTESTATION My preceptor for this patient encounter was physically present in the building during the encounter and was fully available. As needed, all aspects of the patient interview, examination, medical decision making process, and medical care plan development were reviewed and approved by the preceptor. Preceptor is aware and concurs with the plan as stated in the body of this note and will attest to such by his/her cosignature. ATTENDING NOTE Patient has been seen independently. All parts of the treatment plan has been discussed in detail with the resident and outlined above. A member of the hospitalist team will continue to see the patient daily through discharge to assist with management of this patient ANIL ARELLANO, Aug 19, 2017 09:17 HECTOR BURR DO Aug 22, 2017 15:44
[2017-08-19] MEDS: cefTRIAXone SOD 1 GM in D5W 50 ML IV SCH (18:01)
[2017-08-19] MEDS: WARFARIN SOD 2 MG TAB PO SCH (18:01)
[2017-08-19] MEDS: SIMVASTATIN 20 MG TAB PO SCH (20:53)
[2017-08-19] MEDS: MONTELUKAST 10 MG TAB PO SCH (20:54)
[2017-08-19] MEDS: SODIUM BICARBONATE 325 MG TAB PO SCH (20:54)
[2017-08-19] MEDS ORDERED: NITROGLYCERIN 0.4 MG SUBL TABLET As Ordered ONE (21:33)
[2017-08-19] MEDS ORDERED: NITROGLYCERIN 2% OINT 1 GM *U/D* PKT TOP ONE (21:45)
[2017-08-19] MEDS ORDERED: NITROGLYCERIN 0.4 MG SUBL TABLET SL STA (21:50)
[2017-08-19 22:22] LABS: CALCIUM LEVEL 8.8 MG/DL (8.8-10.2); CREATININE FOR GFR 1.04 MG/DL (0.55-1.02); MAGNESIUM LEVEL 1.1 MG/DL (1.8-2.4); POTASSIUM SERUM 3.5 MEQ/L (3.5-5.1)
[2017-08-19] MEDS ORDERED: MAG SULF 1GM/100ML (MAG RUN) 1 GM in APPROPRIATE DILUENT 1 EA IV ONE (23:15)
[2017-08-19 23:38] LABS: INR 3.14
[2017-08-20] VITALS (7 sets, daily range): BP systolic 142–210; BP diastolic 68–86
--- NOTE | 2017-08-20 00:53 | IPNPDOC ---
Subjective Date Seen The patient was seen on 08/20/17. Subjective Chief Complaint/HPI The patient is a 76-year-old female admitted with a reason for visit of Seizure. ENT: Reports: Other Symptoms (left jaw pain and numbness) Pulmonary: Reports: Dyspnea Cardiovascular: Reports: Chest Pain, Denies: Palpitations, Orthopnea Endocrine: Reports: Other Endocrine Sx (felt "hot") Musculoskeletal: Reports: Shoulder Pain, Arm Pain (left shoulder pain and numbness) Objective Physical Examination General Exam: Positive: Mild Distress, Negative: Alert Eye Exam: Positive: Conjunctiva & lids normal, Negative: Ptosis ENT Exam: Positive: Atraumatic, Mucous membr. moist/pink Neck Exam: Positive: Supple, Negative: JVD Chest Exam: Positive: Other (pain to applied pressure midsternal), Negative: Clear to auscultation, Rales, Rhonchi, Wheezing Heart Exam: Positive: Rate Normal, Regular Rhythm, Normal S1, Normal S2, Negative: Murmurs Telemetry: Positive: Sinus Psych Exam: Positive: Memory Intact Assessment /Plan Assessment overnight provider called to evaluate pt for acute onset of substernal chest pain, heavy in nature with radiation to her left neck and jaw and left shoulder/ arm and hand, pt stated her left arm felt numb and heavy, also described some SOB that is new for her, stated she felt "hot", denied n/v. Stat EKG did not demonstrate signs of active ischemia or impending infarct, stat CXR pending. Pain to pressure was illicit when area of sternum was touched, no increase in pain w/inspiration. First set of stat cardiac markers reveled troponin .05, repeat pending. PT did receive .4 mg SL nitro., which she said did not help her pain at all. BP was elevated at 182/100 but did come down after nitro. 97% on room air w/ HR in the 70s, will actively watch pt., pending results of CXR and second set of troponins will provide further interventions. About two hours after the event, pt admitted to nursing staff she didn't have any chest pain at all, nor jaw or arm discomfort/numbness. Pt's MG came back low and was replaced , repeat AM MG for morning. Plan/VTE VTE Prophylaxis Ordered?: Yes (coumadin) Plan/Urinary Catheter Urinary Catheter: D/C Fernandez VS, I&O, 24H, Jethro Vital Signs/I&O Vital Signs Date Time Temp Pulse Resp B/P (MAP) Pulse Ox O2 Delivery O2 Flow Rate FiO2 08/19/17 23:49 97.4 73 18 176/82 (113) 97 Room Air 08/18/17 04:00 2.0 Laboratory Data 24H LABS Laboratory Tests 2 08/19/17 05:08: Anion Gap 9, Glomerular Filtration Rate 56.2, Blood Urea Nitrogen 24H, Creatinine 1.02, Sodium Level 137, Potassium Level 3.2L, Chloride Level 99, Carbon Dioxide Level 29, Calcium Level 8.1L 08/19/17 11:29: Bedside Glucose (Misc Panel) 277H 08/19/17 16:55: Bedside Glucose (Misc Panel) 162H 08/19/17 20:37: Bedside Glucose (Misc Panel) 181H 08/19/17 21:46: Anion Gap 9, Glomerular Filtration Rate 55.0, Blood Urea Nitrogen 20H, Creatinine 1.04H, Sodium Level 140, Potassium Level 3.5, Chloride Level 102, Carbon Dioxide Level 29, Calcium Level 8.8, Total Creatine Kinase 56, Magnesium Level 1.1L, Creatine Kinase MB 2.3, Creatine Kinase MB Relative Index 4.10H, Troponin I 0.05 08/19/17 23:15: Prothrombin Time 33.7H, Prothromb Time International Ratio 3.14 CBC/BMP Laboratory Tests 08/19/17 05:08 Red Blood Count 4.20, Mean Corpuscular Volume 87.4, Mean Corpuscular Hemoglobin 28.8, Mean Corpuscular Hemoglobin Concent 33.0, Red Cell Distribution Width 12.9 , Calcium Level 8.1 L 08/19/17 21:46 Calcium Level 8.8, Total Creatine Kinase 56 Microbiology Microbiology 08/17/17 Blood Culture - Preliminary, Resulted No Growth after 48 hours. All Specime... 08/17/17 Blood Culture - Preliminary, Resulted No Growth after 48 hours. All Specime... 08/17/17 Blood Culture - Preliminary, Resulted No Growth after 48 hours. All Specime... 08/17/17 Urine Culture - Final, Complete GME ATTESTATION GME ATTESTATION My preceptor for this patient encounter was physically present in the building during the encounter and was fully available. As needed, all aspects of the patient interview, examination, medical decision making process, and medical care plan development were reviewed and approved by the preceptor. Preceptor is aware and concurs with the plan as stated in the body of this note and will attest to such by his/her cosignature. ATTENDING NOTE I have both independently examined this patient as well as reviewed the note. I have discussed in detail with the resident the findings and plan of treatment as documented in the residents note. I will continue to follow the patient and offer further guidance to the patients care as necessary during this hospital stay. IVY Mijares MD, DO Aug 20, 2017 00:53 INGRID RODRIGUEZ MD Aug 20, 2017 18:56
[2017-08-20] MEDS ORDERED: METOPROLOL TART 25 MG TABLET PO ONE (02:00)
[2017-08-20 03:54] LABS: MEAN CORPUSCULAR HEMOGLOBIN 29.2 pg (27.0-33.0); MEAN CORPUSCULAR HGB CONC 33.3 g/dl (32.0-36.5); MEAN CORPUSCULAR VOLUME 87.5 fl (80.0-96.0); RED CELL DISTRIBUTION WIDTH 12.9 % (11.5-14.5); WHITE BLOOD COUNT 7.3 10^3/uL (4.0-10.0)
[2017-08-20 04:03] LABS: INR 3.23
[2017-08-20 04:20] LABS: ANION GAP 8 MEQ/L (8-16); BLOOD UREA NITROGEN 18 MG/DL (7-18); CALCIUM LEVEL 8.7 MG/DL (8.8-10.2); CARBON DIOXIDE LEVEL 31 MEQ/L (21-32); CHLORIDE LEVEL 101 MEQ/L (98-107); CREATININE FOR GFR 0.92 MG/DL (0.55-1.02); GLOMERULAR FILTRATION RATE > 60.0 (>39); GLUCOSE, FASTING 235 MG/DL (83-110); MAGNESIUM LEVEL 1.6 MG/DL (1.8-2.4); POTASSIUM SERUM 3.5 MEQ/L (3.5-5.1); SODIUM LEVEL 140 MEQ/L (136-145)
[2017-08-20] MEDS ORDERED: hydrALAZINE INJ 20 MG/ML VIAL IV STA (05:02)
[2017-08-20] MEDS: ISOSORBIDE DIN (ISORDIL) 10 MG TAB PO SCH ×3 (05:08→21:09)
[2017-08-20] MEDS: LEVOTHYROXINE 88MCG TABLET (0.088 MG) PO SCH (05:08)
[2017-08-20] MEDS: LEVOTHYROXINE 100MCG TABLET (0.1MG) PO SCH (05:08)
[2017-08-20] MEDS ORDERED: MAG SULF 1GM/100ML (MAG RUN) 1 GM in APPROPRIATE DILUENT 1 EA IV ONE ×2 (05:15→10:45)
[2017-08-20] MEDS: PANTOPRAZOLE 40MG INJ (PROTONIX) (C9113) IV SCH (08:15)
[2017-08-20] MEDS: LOSARTAN 50 MG TAB PO SCH (08:16)
[2017-08-20] MEDS: PHENAZOPYRIDINE 100 MG TAB PO SCH ×2 (08:16→21:08)
[2017-08-20] MEDS: HumaLOG INSULIN (NovoLOG) PER UNIT SC SCH ×4 (08:16→21:00)
[2017-08-20] MEDS: ALLOPURINOL 100 MG TAB PO SCH (08:17)
[2017-08-20] MEDS: NEBIVOLOL 5 MG TAB (BYSTOLIC) PO SCH ×2 (08:17→21:08)
[2017-08-20] MEDS: DULoxetine 30 MG CAP (CYMBALTA) PO SCH (08:17)
[2017-08-20] MEDS: levETIRAcetam 250MG TABLET (KEPPRA) PO SCH ×2 (08:17→21:07)
[2017-08-20] MEDS: LR 1,000 ML IV SCH (10:33)
--- NOTE | 2017-08-20 12:33 | REP ---
Portable chest, 09:50 p.m., single AP view, patient sitting: Comparison is 08/17/2017. The lung sorto are clear. The cardiac size is normal. The oliva, mediastinum, and bony thorax are unremarkable. Impression: Negative portable chest. Signed by Cj Carpenter MD 08/20/2017 12:26 P
--- NOTE | 2017-08-20 12:49 | IPNPDOC ---
Date Seen The patient was seen on 08/20/17. Progress Note SUBJECTIVE: Patient is a 76-year-old female seen at bedside. Had an episode of chest pain last evening had troponins repeated 2 which were negative. Her blood pressure was elevated and started on isosorbide. Additionally she's been on glyburide since her admission. This is been discontinued and she is followed with fingersticks and sliding scale coverage. He has not demonstrated any issues on telemetry overnight. Her blood pressure is moderately improved. We did discuss resuming her Lasix. OBJECTIVE PHYSICAL EXAMINATION: VITAL SIGNS: Please see below. GENERAL: No acute distress HEENT: PERRLA CARDIOVASCULAR: Regular rate and rhythm. RESPIRATORY: Clear to auscultation. ABDOMINAL: Soft, nontender, nondistended, positive bowel sounds EXTREMITIES: No edema, no calf tenderness NEUROLOGICAL: Cranial nerves II through XII grossly intact PSYCHOLOGICAL: Negative LABORATORY DATA: Please see below. IMAGING: Portable chest x-ray no acute cardiopulmonary processes. Echocardiogram: 1. The study is of poor technical quality. 2. Normal left ventricular (LV) size with mild to moderate left ventricular hypertrophy (LVH) and hyperdynamic LV systolic function. Grade 1 diastolic dysfunction. 3. No significant valvular disease. 4. Normal central venous pressure and likely mild pulmonary hypertension. . DVT prophylaxis ordered?: Yes ASSESSMENT AND PLAN: This is a 76-year-old female does appear to be clinically improved today. PROBLEMS: 1. Seizure: Confirmed by EEG. We'll continue on Keppra 2. UTI. Continue Rocephin for total 5 days. Urine blood cultures have been unremarkable 3. Elevated troponin. Likely elevated secondary to seizure. She's not shown any new issues on telemetry. 4. Hypomagnesemia. We'll replete 4. Mental status changes. Improved. Likely metabolic encephalopathy from underlying urinary tract infection and seizure. 5. Acute kidney injury on admission. This is resolved 6. Diabetes Mellitus. Continue fingersticks before meals and at bedtime consistent carb diet, sliding scale insulin coverage. Oral antidiabetic medications be resumed upon discharge. 7. GERD. Continue home Protonix. 8. Chronic pain. No further issues at this time. 9. Gout. Continue home allopurinol. 10. Hypothyroid. Continue home Synthroid. 11. Dyslipidemia. Continue home statin. 12. Hypertension. Currently on isosorbide nitrate, Cozaar, Bystolic and will resume her home dose of Lasix. 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 Supratherapeutic on INR today. We'll hold this evening's dose of Coumadin. Repeat INR tomorrow. 14. Unspecified mood disorder. Continue home Duloxetine. 15. DVT prophylaxis. Supratherapeutic on coumadin. hold dose this evening and repeat INR tomorrow. DISPOSITION: PT OT consults in place. will downgrade to med/surg tele for another 24hrs.. VS, I&O, 24H, Fishbone Vital Signs/I&O Vital Signs Date Time Temp Pulse Resp B/P (MAP) Pulse Ox O2 Delivery O2 Flow Rate FiO2 08/20/17 08:17 88 08/20/17 08:16 169/78 08/20/17 08:00 Room Air 08/20/17 07:30 98.3 20 95 08/20/17 04:33 2.0 I&O- Last 24 Hours up to 6 AM 08/21/17 06:00 Intake Total 295 ml Output Total 650 ml Balance -355 ml Laboratory Data 24H LABS Laboratory Tests 2 08/19/17 16:55: Bedside Glucose (Misc Panel) 162H 08/19/17 20:37: Bedside Glucose (Misc Panel) 181H 08/19/17 21:46: Anion Gap 9, Glomerular Filtration Rate 55.0, Blood Urea Nitrogen 20H, Creatinine 1.04H, Sodium Level 140, Potassium Level 3.5, Chloride Level 102, Carbon Dioxide Level 29, Calcium Level 8.8, Total Creatine Kinase 56, Magnesium Level 1.1L, Creatine Kinase MB 2.3, Creatine Kinase MB Relative Index 4.10H, Troponin I 0.05 08/19/17 23:15: Prothrombin Time 33.7H, Prothromb Time International Ratio 3.14 08/20/17 03:40: Prothrombin Time 34.5H, Prothromb Time International Ratio 3.23, Anion Gap 8, Glomerular Filtration Rate > 60.0, Blood Urea Nitrogen 18, Creatinine 0.92, Sodium Level 140, Potassium Level 3.5, Chloride Level 101, Carbon Dioxide Level 31, Calcium Level 8.7L, Total Creatine Kinase 56, Magnesium Level 1.6L, Creatine Kinase MB 2.4, Creatine Kinase MB Relative Index 4.28H, Troponin I 0.06 08/20/17 08:11: Total Creatine Kinase 60, Creatine Kinase MB 2.3, Creatine Kinase MB Relative Index 3.83, Troponin I 0.04# 08/20/17 11:51: Bedside Glucose ([facility] [place] [facility] Panel) 252H CBC/BMP Laboratory Tests 08/19/17 21:46 Calcium Level 8.8, Total Creatine Kinase 56 08/20/17 03:40 Calcium Level 8.7 L, Total Creatine Kinase 56, Red Blood Count 4.32, Mean Corpuscular Volume 87.5, Mean Corpuscular Hemoglobin 29.2, Mean Corpuscular Hemoglobin Concent 33.3, Red Cell Distribution Width 12.9 Microbiology Microbiology 08/17/17 Blood Culture - Preliminary, Resulted No Growth after 48 hours. All Specime... 08/17/17 Blood Culture - Preliminary, Resulted No Growth after 48 hours. All Specime... 08/17/17 Blood Culture - Preliminary, Resulted No Growth after 48 hours. All Specime... 08/17/17 Urine Culture - Final, Complete HECTOR BURR DO Aug 20, 2017 12:49
[2017-08-20] MEDS: FUROSEMIDE 80 MG TAB PO SCH (13:39)
[2017-08-20] MEDS: cefTRIAXone SOD 1 GM in D5W 50 ML IV SCH (16:04)
[2017-08-20] MEDS: PERCOCET 5MG/325MG TAB PO PRN (16:06)
--- NOTE | 2017-08-20 19:32 | ECGEPIP ---
Stationary ECG Study [facility] Test Date: 2017-08-19 Pat Name: KASIE GROSS Department: Room: [place] [address] Gender: F Habilitative Interventionist: MACEY : 1940 Requested By: IVY CHILEL Order Number: [id number] Reading MD: Sheba Leary Measurements Intervals [place] Rate: 79 P: -16 IN: 174 QRS: -29 QRSD: 90 T: -39 QT: 385 QTc: 442 Interpretive Statements SINUS RHYTHM LEFT AXIS DEVIATION LEFT VENTRICULAR HYPERTROPHY AND ST-T CHANGE AND OR ISCHEMIA MORE MARKED C/W 08/18/17 OLD IWMI POSSIBLE VS LEFT AXIS Electronically Signed On 08-20-2017 19:31:39 EDT by Sheba Leary
[2017-08-20] MEDS: SODIUM BICARBONATE 325 MG TAB PO SCH (21:07)
[2017-08-20] MEDS: SIMVASTATIN 20 MG TAB PO SCH (21:07)
[2017-08-20] MEDS: MONTELUKAST 10 MG TAB PO SCH (21:08)
[2017-08-21] MEDS: PERCOCET 5MG/325MG TAB PO PRN (04:04)
[2017-08-21] MEDS: LEVOTHYROXINE 88MCG TABLET (0.088 MG) PO SCH (05:12)
[2017-08-21] MEDS: LEVOTHYROXINE 100MCG TABLET (0.1MG) PO SCH (05:12)
[2017-08-21] MEDS: ISOSORBIDE DIN (ISORDIL) 10 MG TAB PO SCH ×3 (05:14→22:01)
[2017-08-21 06:00] VITALS: BP 137/78
[2017-08-21 06:53] LABS: MEAN CORPUSCULAR HEMOGLOBIN 29.1 pg (27.0-33.0); MEAN CORPUSCULAR HGB CONC 33.1 g/dl (32.0-36.5); MEAN CORPUSCULAR VOLUME 87.7 fl (80.0-96.0); RED CELL DISTRIBUTION WIDTH 13.1 % (11.5-14.5)
[2017-08-21 07:05] LABS: INR 2.78
[2017-08-21 07:11] LABS: CALCIUM LEVEL 8.7 MG/DL (8.8-10.2); CREATININE FOR GFR 1.12 MG/DL (0.55-1.02); GLOMERULAR FILTRATION RATE 50.5 (>39); MAGNESIUM LEVEL 1.4 MG/DL (1.8-2.4); POTASSIUM SERUM 3.1 MEQ/L (3.5-5.1)
[2017-08-21] MEDS ORDERED: POTASSIUM CHLORIDE 10 MEQ SR TABLET PO ONE (08:00)
[2017-08-21] MEDS ORDERED: MAG SULF 1GM/100ML (MAG RUN) 1 GM in APPROPRIATE DILUENT 1 EA IV ONE (08:00)
[2017-08-21] MEDS: HumaLOG INSULIN (NovoLOG) PER UNIT SC SCH ×4 (08:25→21:00)
[2017-08-21] MEDS: PANTOPRAZOLE 40MG INJ (PROTONIX) (C9113) IV SCH (08:26)
[2017-08-21] MEDS: FUROSEMIDE 80 MG TAB PO SCH (08:27)
[2017-08-21] MEDS: levETIRAcetam 250MG TABLET (KEPPRA) PO SCH ×2 (08:27→20:28)
[2017-08-21] MEDS: ALLOPURINOL 100 MG TAB PO SCH (08:27)
[2017-08-21] MEDS: DULoxetine 30 MG CAP (CYMBALTA) PO SCH (08:27)
[2017-08-21] MEDS: PHENAZOPYRIDINE 100 MG TAB PO SCH ×2 (08:27→20:28)
[2017-08-21] MEDS: LOSARTAN 50 MG TAB PO SCH (08:28)
[2017-08-21] MEDS: NEBIVOLOL 5 MG TAB (BYSTOLIC) PO SCH ×2 (08:28→20:29)
[2017-08-21] MEDS ORDERED: FENTANYL REMOVAL DOCUMENTATION MISC XX SCH (09:00)
[2017-08-21] MEDS: fentaNYL 100 MCG/HR PATCH TOP SCH (10:35)
--- NOTE | 2017-08-21 11:29 | IPNPDOC ---
Subjective Date Seen The patient was seen on 08/21/17. Subjective Chief Complaint/HPI The patient is a 76-year-old female admitted with a reason for visit of Seizure. Events since last encounter Patient has been cooperative per patient and nursing. Patient states that she does not feel as well as she did yesterday, but still feels much better than admission. She complains of continued nausea. PT saw patient yesterday and would like to continue evaluation and work on stairs. Nursing has been encouraging patient to walk to bathroom instead of bedside commode. This has been difficult as patient has had knee pain; daughter will be bringing patient her brace today. Patient is on day 5 of Rocephin, WBC 9.0 today. Pulmonary: Denies: Dyspnea Cardiovascular: Denies: Chest Pain Gastrointestinal: Reports: Nausea (Ongoing), Denies: Abdominal Pain, Diarrhea, Constipation Genitourinary: Denies: Dysuria Objective Physical Examination General Exam: Positive: No Acute Distress, Negative: Alert Chest Exam: Negative: Clear to auscultation, Rales, Rhonchi, Wheezing Heart Exam: Positive: Rate Normal, Regular Rhythm, Normal S1, Normal S2, Negative: Murmurs Abdomen Exam: Positive: Normal bowel sounds, Soft, Negative: Tenderness Extremity Exam: Negative: Tenderness, Swelling Psych Exam: Positive: Memory Intact Assessment /Plan Assessment 1. Seizure: Confirmed by EEG. We'll continue on Keppra. Patient has had no recurrence of seizure activity since admission. 2. UTI. Patient is on day 5 of Rocephin, will discontinue after today. Urine culture x1 and blood cultures x 2 have been unremarkable. Urine according to the new nursing has been unremarkable decreased pungent smell and thickness noted. WBC 9.0 today. We'll consider discontinuing the Rocephin tomorrow pending CBC labs and how patient is doing. 3. Elevated troponin. Likely elevated secondary to seizure. She's not shown any new issues on telemetry and has not had recurrence of chest pain since overnight 08/20. Continue to monitor for return of pain. 4. Hypomagnesemia. 1.8 this morning, repleted with 1 Mag run. Will continue to monitor. 5. Hypokalemia. 3.1 this morning, repleted with supplemental potassium. Will continue to monitor. 6. Mental status changes. Improved. Likely metabolic encephalopathy from underlying urinary tract infection and seizure. 7. Acute kidney injury on admission. This is resolved. 8. Diabetes Mellitus. Continue fingersticks before meals and at bedtime, consistent carb diet, sliding scale insulin coverage. 9. GERD. Continue home Protonix. 10. Chronic pain. No further issues at this time. 11. Gout. Continue home allopurinol. 12. Hypothyroid. Continue home Synthroid. 13. Dyslipidemia. Continue home statin. 14. Hypertension. Currently on isosorbide nitrate, Cozaar, Bystolic and will resume her home dose of Lasix. 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 INR 2.78 today. Restart Coumadin dose tomorrow. Repeat INR tomorrow. 16. Unspecified mood disorder. Continue home Duloxetine. 17. PT.Saw Patient yesterday and would like to continue evaluation and work on stairs. Continued recommendation from PT is appreciated. Discharge pending until cleared by PT. 17. DVT prophylaxis. INR 2.78 today.Continue holding for one more day and repeat INR tomorrow. Plan/VTE VTE Prophylaxis Ordered?: Yes (coumadin) Plan/Urinary Catheter Urinary Catheter: D/C Fernandez VS, I&O, 24H, Fishbone Vital Signs/I&O Vital Signs Date Time Temp Pulse Resp B/P (MAP) Pulse Ox O2 Delivery O2 Flow Rate FiO2 08/21/17 06:00 98.2 72 18 137/78 (97) 98 Room Air 08/20/17 04:33 2.0 I&O- Last 24 Hours up to 6 AM 08/22/17 05:59 Intake Total 120 ml Output Total 0 ml Balance 120 ml Laboratory Data 24H LABS Laboratory Tests 2 08/20/17 08:11: Total Creatine Kinase 60, Creatine Kinase MB 2.3, Creatine Kinase MB Relative Index 3.83, Troponin I 0.04# 08/20/17 11:51: Bedside Glucose (Misc Panel) 252H 08/20/17 20:27: Bedside Glucose (Misc Panel) 241H 08/21/17 06:42: Nucleated Red Blood Cells % (auto) 0.0, Prothrombin Time 30.5H, Prothromb Time International Ratio 2.78, Anion Gap 9, Glomerular Filtration Rate 50.5, Blood Urea Nitrogen 15, Creatinine 1.12H, Sodium Level 137, Potassium Level 3.1L, Chloride Level 99, Carbon Dioxide Level 29, Calcium Level 8.7L, Magnesium Level 1.4L CBC/BMP Laboratory Tests 08/21/17 06:42 Red Blood Count 3.99 L, Mean Corpuscular Volume 87.7, Mean Corpuscular Hemoglobin 29.1, Mean Corpuscular Hemoglobin Concent 33.1, Red Cell Distribution Width 13.1, Calcium Level 8.7 L Microbiology Microbiology 08/17/17 Blood Culture - Preliminary, Resulted No Growth after 72 hours. All specime... 08/17/17 Blood Culture - Preliminary, Resulted No Growth after 72 hours. All specime... 08/17/17 Blood Culture - Preliminary, Resulted No Growth after 72 hours. All specime... 08/17/17 Urine Culture - Final, Complete GME ATTESTATION GME ATTESTATION My preceptor for this patient encounter was physically present in the building during the encounter and was fully available. As needed, all aspects of the patient interview, examination, medical decision making process, and medical care plan development were reviewed and approved by the preceptor. Preceptor is aware and concurs with the plan as stated in the body of this note and will attest to such by his/her cosignature. GME ATTESTATION GME ATTESTATION My preceptor for this patient encounter was physically present in the building during the encounter and was fully available. As needed, all aspects of the patient interview, examination, medical decision making process, and medical care plan development were reviewed and approved by the preceptor. Preceptor is aware and concurs with the plan as stated in the body of this note and will attest to such by his/her cosignature. ATTENDING NOTE Attending Note: I have independently examined this patient and all aspects of the exam and treatment decisions have been discussed with the resident. A member of the hospitalist staff will continue to follow this patient through discharge. ANIL ARELLANO,DO Aug 21, 2017 08:01 HECTOR BURR DO Aug 24, 2017 14:58
[2017-08-21 13:12] LABS: ALBUMIN 3.1 GM/DL (3.2-5.2); CALCIUM LEVEL 9.6 MG/DL (8.8-10.2); CREATININE FOR GFR 1.33 MG/DL (0.55-1.02); GLOMERULAR FILTRATION RATE 41.4 (>39); MAGNESIUM LEVEL 1.7 MG/DL (1.8-2.4); PHOSPHORUS LEVEL 2.3 MG/DL (2.5-4.9); POTASSIUM SERUM 3.4 MEQ/L (3.5-5.1)
[2017-08-21 15:05] VITALS: BP 137/68
[2017-08-21] MEDS: cefTRIAXone SOD 1 GM in D5W 50 ML IV SCH (16:54)
[2017-08-21] MEDS: SODIUM BICARBONATE 325 MG TAB PO SCH (20:28)
[2017-08-21] MEDS: SIMVASTATIN 20 MG TAB PO SCH (20:29)
[2017-08-21] MEDS: MONTELUKAST 10 MG TAB PO SCH (20:29)
[2017-08-21 22:00] VITALS: BP 140/80
[2017-08-22] MEDS: LEVOTHYROXINE 88MCG TABLET (0.088 MG) PO SCH (05:54)
[2017-08-22] MEDS: LEVOTHYROXINE 100MCG TABLET (0.1MG) PO SCH (05:55)
[2017-08-22] MEDS: ISOSORBIDE DIN (ISORDIL) 10 MG TAB PO SCH ×3 (05:56→21:41)
[2017-08-22 06:00] VITALS: BP 142/85
[2017-08-22 06:09] LABS: MEAN CORPUSCULAR HEMOGLOBIN 28.8 pg (27.0-33.0); MEAN CORPUSCULAR HGB CONC 32.4 g/dl (32.0-36.5); MEAN CORPUSCULAR VOLUME 88.7 fl (80.0-96.0); RED CELL DISTRIBUTION WIDTH 12.9 % (11.5-14.5); WHITE BLOOD COUNT 10.2 10^3/uL (4.0-10.0)
[2017-08-22 06:26] LABS: INR 1.84
[2017-08-22 06:32] LABS: CALCIUM LEVEL 9.5 MG/DL (8.8-10.2); CREATININE FOR GFR 1.28 MG/DL (0.55-1.02); GLOMERULAR FILTRATION RATE 43.3 (>39); MAGNESIUM LEVEL 1.4 MG/DL (1.8-2.4); POTASSIUM SERUM 3.5 MEQ/L (3.5-5.1)
[2017-08-22] MEDS: DULoxetine 30 MG CAP (CYMBALTA) PO SCH (09:13)
[2017-08-22] MEDS: NEBIVOLOL 5 MG TAB (BYSTOLIC) PO SCH ×2 (09:13→20:49)
[2017-08-22] MEDS: PHENAZOPYRIDINE 100 MG TAB PO SCH ×2 (09:13→20:49)
[2017-08-22] MEDS: FUROSEMIDE 80 MG TAB PO SCH (09:14)
[2017-08-22] MEDS: ALLOPURINOL 100 MG TAB PO SCH (09:14)
[2017-08-22] MEDS: PANTOPRAZOLE 40MG INJ (PROTONIX) (C9113) IV SCH (09:14)
[2017-08-22] MEDS: levETIRAcetam 250MG TABLET (KEPPRA) PO SCH ×2 (09:14→20:49)
[2017-08-22] MEDS: LOSARTAN 50 MG TAB PO SCH (09:14)
[2017-08-22] MEDS: HumaLOG INSULIN (NovoLOG) PER UNIT SC SCH ×4 (09:15→20:50)
--- NOTE | 2017-08-22 10:53 | IPNPDOC ---
Subjective Date Seen The patient was seen on 08/22/17. Subjective Chief Complaint/HPI The patient is a 76-year-old female admitted with a reason for visit of Seizure. Events since last encounter Nursing states that there were no overnight events, and PT did not work with patient yesterday because patient did not have her knee brace. She is supposed to have that brought today by family. Patient states that she feels much better than when admitted to hospital. Her main concern is that she feels very unsteady , which makes her not want to go home yet. Patient also started using her CPAP for [place], which was delivered by family since she uses it at home. PT will work with the patient today if she has her knee brace. Cardiovascular: Denies: Chest Pain Gastrointestinal: Denies: Nausea, Abdominal Pain, Diarrhea, Constipation Genitourinary: Reports: Other Symptoms (cramping sensation on the lower abdomen ), Denies: Dysuria Objective Physical Examination General Exam: Positive: No Acute Distress, Negative: Alert Chest Exam: Negative: Clear to auscultation, Rales, Rhonchi, Wheezing Heart Exam: Positive: Rate Normal, Regular Rhythm, Normal S1, Normal S2, Negative: Murmurs Abdomen Exam: Positive: Normal bowel sounds, Soft, Negative: Tenderness Extremity Exam: Negative: Tenderness, Swelling Psych Exam: Positive: Memory Intact Assessment /Plan Assessment 1. Seizure: Confirmed by EEG on 08/18. We'll continue on Keppra. Patient has had no recurrence of seizure activity since admission. 2. UTI (resolved) Complete 6 days of rocephin. Urine culture x1 and blood cultures x 2 have been unremarkable. WBC 10.2 today. Patient condition improved but is complaining of lower abdomen cramping. Will obtain a UA. 3. Elevated troponin. Likely elevated secondary to seizure. She's not shown any new issues on telemetry and has not had recurrence of chest pain since overnight 08/20. Continue to monitor for return of pain. 4. Hypomagnesemia. 1.4 this morning, replete with 1 Mag run. Will continue to monitor. 5. Hypokalemia. Resolved. 3.5 this morning. Will continue to monitor. 6. Mental status changes. Improved. Likely metabolic encephalopathy from underlying urinary tract infection and seizure. 7. Acute kidney injury on admission. (resolved). 8. Diabetes Mellitus. Continue fingersticks before meals and at bedtime, consistent carb diet, sliding scale insulin coverage. 9. GERD. Continue home Protonix. 10. Chronic pain. No further issues at this time. 11. Gout. Continue home allopurinol. 12. Hypothyroid. Continue home Synthroid. 13. Dyslipidemia. Continue home statin. 14. Hypertension. Currently on isosorbide nitrate, Cozaar, Bystolic and her home dose of Lasix. 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 INR 1.84 today. Restart Coumadin dose for today. Repeat INR tomorrow. 16. Unspecified mood disorder. Continue home Duloxetine. 17. PT. Unable to see patient yesterday due to patient knee pain and not having her brace yet. Family is supposed to deliver knee brace today, patient scheduled to see PT. Patient is not comfortable with discharge yet because she feels very unsteady. As of 08/20 PT would like to continue evaluation and work on stairs. Continued recommendation from PT is appreciated. Discharge pending until cleared by PT. 17. DVT prophylaxis. INR 1.84 today. Coumadin will resume today and repeat INR tomorrow. Plan/VTE VTE Prophylaxis Ordered?: Yes (coumadin) Plan/Urinary Catheter Urinary Catheter: D/C Fernandez VS, I&O, 24H, Fishbone Vital Signs/I&O Vital Signs Date Time Temp Pulse Resp B/P (MAP) Pulse Ox O2 Delivery O2 Flow Rate FiO2 08/22/17 06:00 97.2 81 18 142/85 (104) 100 NIPPV (BIPAP/CPAP) 08/20/17 04:33 2.0 I&O- Last 24 Hours up to 6 AM 08/23/17 05:59 Intake Total 120 ml Output Total 0 ml Balance 120 ml Laboratory Data 24H LABS Laboratory Tests 2 08/21/17 11:51: Bedside Glucose (Misc Panel) 296H 08/21/17 12:04: Blood Urea Nitrogen 17, Creatinine 1.33H, Sodium Level 135L, Potassium Level 3.4L, Chloride Level 97L, Carbon Dioxide Level 27, Anion Gap 11, Glomerular Filtration Rate 41.4, Calcium Level 9.6, Phosphorus Level 2.3L, Magnesium Level 1.7L, Albumin 3.1L 08/21/17 17:10: Bedside Glucose (Misc Panel) 238H 08/21/17 21:38: Bedside Glucose (Misc Panel) 244H 08/22/17 05:55: Nucleated Red Blood Cells % (auto) 0.0, Anion Gap 7L, Glomerular Filtration Rate 43.3, Blood Urea Nitrogen 20H, Creatinine 1.28H, Sodium Level 139, Potassium Level 3.5, Chloride Level 97L, Carbon Dioxide Level 35H, Calcium Level 9.5, Magnesium Level 1.4L 08/22/17 05:56: Prothrombin Time 21.9H, Prothromb Time International Ratio 1.84 CBC/BMP Laboratory Tests 08/21/17 12:04 Anion Gap 11 08/22/17 05:55 Red Blood Count 4.59, Mean Corpuscular Volume 88.7, Mean Corpuscular Hemoglobin 28.8, Mean Corpuscular Hemoglobin Concent 32.4, Red Cell Distribution Width 12.9 , Calcium Level 9.5 Microbiology Microbiology 08/17/17 Blood Culture - Preliminary, Resulted No Growth after 72 hours. All specime... 08/17/17 Blood Culture - Preliminary, Resulted No Growth after 72 hours. All specime... 08/17/17 Blood Culture - Preliminary, Resulted No Growth after 72 hours. All specime... 08/17/17 Urine Culture - Final, Complete GME ATTESTATION GME ATTESTATION My preceptor for this patient encounter was physically present in the building during the encounter and was fully available. As needed, all aspects of the patient interview, examination, medical decision making process, and medical care plan development were reviewed and approved by the preceptor. Preceptor is aware and concurs with the plan as stated in the body of this note and will attest to such by his/her cosignature. ATTENDING NOTE Attending Note: I have independently examined this patient and all aspects of the exam and treatment decisions have been discussed with the resident. A member of the hospitalist staff will continue to follow this patient through discharge. ANIL ARELLANO DO Aug 22, 2017 09:06 HECTOR BURR DO Aug 24, 2017 15:01
[2017-08-22] MEDS: LORATADINE 10 MG TAB PO SCH (11:18)
[2017-08-22 14:00] VITALS: BP 139/64
[2017-08-22] MEDS: cefTRIAXone SOD 1 GM in D5W 50 ML IV SCH (17:32)
[2017-08-22 20:40] VITALS: BP 142/67
[2017-08-22] MEDS: SIMVASTATIN 20 MG TAB PO SCH (20:49)
[2017-08-22] MEDS: MONTELUKAST 10 MG TAB PO SCH (20:49)
[2017-08-22] MEDS: SODIUM BICARBONATE 325 MG TAB PO SCH (20:49)
[2017-08-23 05:35] VITALS: BP 162/80
[2017-08-23] MEDS: LEVOTHYROXINE 88MCG TABLET (0.088 MG) PO SCH (05:41)
[2017-08-23] MEDS: LEVOTHYROXINE 100MCG TABLET (0.1MG) PO SCH (05:41)
[2017-08-23] MEDS: ISOSORBIDE DIN (ISORDIL) 10 MG TAB PO SCH ×3 (05:41→21:05)
[2017-08-23 06:32] LABS: MEAN CORPUSCULAR HEMOGLOBIN 28.8 pg (27.0-33.0); MEAN CORPUSCULAR HGB CONC 32.9 g/dl (32.0-36.5); MEAN CORPUSCULAR VOLUME 87.4 fl (80.0-96.0); WHITE BLOOD COUNT 11.7 10^3/uL (4.0-10.0)
[2017-08-23 06:41] LABS: INR 1.23
[2017-08-23 06:53] LABS: CALCIUM LEVEL 9.4 MG/DL (8.8-10.2); CREATININE FOR GFR 1.62 MG/DL (0.55-1.02); MAGNESIUM LEVEL 1.4 MG/DL (1.8-2.4); POTASSIUM SERUM 3.8 MEQ/L (3.5-5.1)
[2017-08-23] MEDS: HumaLOG INSULIN (NovoLOG) PER UNIT SC SCH ×4 (08:22→20:42)
[2017-08-23] MEDS: levETIRAcetam 250MG TABLET (KEPPRA) PO SCH ×2 (08:26→20:41)
[2017-08-23] MEDS: LORATADINE 10 MG TAB PO SCH (08:27)
[2017-08-23] MEDS: ALLOPURINOL 100 MG TAB PO SCH (08:27)
[2017-08-23] MEDS: LOSARTAN 50 MG TAB PO SCH (08:27)
[2017-08-23] MEDS: NEBIVOLOL 5 MG TAB (BYSTOLIC) PO SCH ×2 (08:28→20:41)
[2017-08-23] MEDS: FUROSEMIDE 80 MG TAB PO SCH (08:28)
[2017-08-23] MEDS: PHENAZOPYRIDINE 100 MG TAB PO SCH ×2 (08:28→20:40)
[2017-08-23] MEDS: DULoxetine 30 MG CAP (CYMBALTA) PO SCH (08:29)
[2017-08-23] MEDS: PANTOPRAZOLE 40MG INJ (PROTONIX) (C9113) IV SCH (08:29)
[2017-08-23] MEDS ORDERED: MAG SULF 1GM/100ML (MAG RUN) 1 GM in APPROPRIATE DILUENT 1 EA IV ONE (09:00)
--- NOTE | 2017-08-23 09:42 | IPNPDOC ---
Subjective Date Seen The patient was seen on 08/23/17. Subjective Chief Complaint/HPI The patient is a 76-year-old female admitted with a reason for visit of Seizure. Events since last encounter Patient was seen and examined this morning at her bedside. Patient states she's feeling better still unsteady on ambulation and will like to continue work with PT before being discharged. Family has not dropped off her brace yesterday as planned she says it'll come today. PT states that they would like to work with her for 1-2 more sessions before being discharged. Patient's blood pressure this morning was 154/64 and per nursing had no overnight events. General: Denies: Fatigue Constitutional: Denies: Fever, Malaise Gastrointestinal: Denies: Nausea, Vomiting, Abdominal Pain, Diarrhea, Constipation Neurological: Denies: Weakness (slightly unsteady when she ambulates) Psych: Reports: Mood Normal Objective Physical Examination General Exam: Positive: Cooperative, No Acute Distress, Negative: Alert Eye Exam: Positive: Conjunctiva & lids normal, Negative: Ptosis ENT Exam: Positive: Atraumatic, Mucous membr. moist/pink Neck Exam: Positive: Supple, Negative: JVD Chest Exam: Positive: Wheezing (posterior BL ), Negative: Clear to auscultation, Rales, Rhonchi Heart Exam: Positive: Rate Normal, Regular Rhythm, Normal S1, Normal S2, Negative: Murmurs Telemetry: Positive: Sinus Abdomen Exam: Positive: BS Hyperactive, Soft, Other (colostomy bag in place in RUQ), Negative: Tenderness Extremity Exam: Positive: Normal pulses, Tenderness (tenderness to palpation of right calf, pt unable to perform Ksahmir test), Negative: Edema, Swelling Skin Exam: Positive: Nl turgor and temperature Psych Exam: Negative: Memory Intact Assessment /Plan Assessment 1. Seizure: Confirmed by EEG on 08/18. We'll continue on Keppra. Patient has had no recurrence of seizure activity since admission. 2. UTI (resolved) Complete 6 days of rocephin. Urine culture x1 and blood cultures x 2 have been unremarkable. WBC 10.2 today. Patient condition improved but is complaining of lower abdomen cramping yesterday. Improved today. Urinalysis on 08/22 was negative for an active UTI. 3. Elevated troponin (resolved). Likely elevated secondary to seizure. She's not shown any new issues on telemetry and has not had recurrence of chest pain since overnight 08/20. Continue to monitor for return of pain. 4. Hypomagnesemia. 1.4 this morning, replete with 1 Mag run. Will continue to monitor. 5. Hypokalemia. Resolved. 3.8 this morning. Will continue to monitor. 6. Mental status changes. Resolved. Likely metabolic encephalopathy from underlying urinary tract infection and seizure. 7. Acute kidney injury. Creatinine is 1.62 this morning will advise the patient to have an increased po intake of fluids because patient net balance in the last 24 hours was -120. 8. Diabetes Mellitus. Continue fingersticks before meals and at bedtime, consistent carb diet, sliding scale insulin coverage. 9. GERD. Continue home Protonix. 10. Chronic pain. No further issues at this time. 11. Gout. Continue home allopurinol. 12. Hypothyroid. Continue home Synthroid. 13. Dyslipidemia. Continue home statin. 14. Hypertension. Currently on isosorbide nitrate, Cozaar, Bystolic and her home dose of Lasix. Blood pressure this morning was 154/64. Today we have held her Lasix 80 mg. Patient net balance is -120 for the last 24 hours. We'll start patient on Norvasc 5 mg we'll reevaluate the blood pressure again in the afternoon. We will consider restarting the Lasix tomorrow at 40 mg dose if needed. 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 INR 1.2 today. Patient will take a one-time dose of 5 mg of warfarin today and will resume her 2 mg daily warfarin tomorrow on 08/24/2017. We will recheck her INR tomorrow to see if it's at therapeutic levels. 16. Unspecified mood disorder. Continue home Duloxetine. 17. PT. Unable to see patient yesterday due to patient knee pain and not having her brace yet. Family is supposed to deliver knee brace yesterday patient scheduled to see PT today. Patient is not comfortable with discharge yet because she feels very unsteady. As of 08/22 PT would like to continue evaluation for 1-2 more sessions. Continued recommendation from PT is appreciated. Discharge pending until cleared by PT. 17. DVT prophylaxis. INR 1.2 today. Patient will take a one-time dose of 5 mg of warfarin today and will resume her 2 mg daily warfarin tomorrow on 2016. We will recheck her INR tomorrow to see if it's at therapeutic levels. Plan/VTE VTE Prophylaxis Ordered?: Yes (coumadin) Plan/Urinary Catheter Urinary Catheter: D/C Fernandez VS, I&O, 24H, Fishbone Vital Signs/I&O Vital Signs Date Time Temp Pulse Resp B/P (MAP) Pulse Ox O2 Delivery O2 Flow Rate FiO2 08/23/17 08:28 93 154/64 08/23/17 05:35 97.2 18 97 Room Air 08/20/17 04:33 2.0 Laboratory Data 24H LABS Laboratory Tests 2 08/22/17 14:22: Urine Appearance CLEAR, Urine Color MINNIE, Urine pH 6.0, Urine Specific [place] 1.003, Urine Protein NEGATIVE, Urine Glucose (UA) 3+H, Urine Ketones NEGATIVE, Urine Urobilinogen 0.2, Urine Bilirubin NEGATIVE, Urine Leukocyte Esterase NEGATIVE, Urine Blood NEGATIVE, Urine Nitrite POSITIVE, Urine WBC (Auto) 8H, Urine RBC (Auto) 2, Urine Hyaline Casts (Auto) 0, Urine Bacteria (Auto) NEGATIVE , Urine Squamous Epithelial Cells 0, Urine Sperm (Auto) 08/23/17 06:19: Nucleated Red Blood Cells % (auto) 0.0, Prothrombin Time 15.7H, Prothromb Time International Ratio 1.23, Anion Gap 12, Glomerular Filtration Rate 33.0L, Blood Urea Nitrogen 33#H, Creatinine 1.62H, Sodium Level 135L, Potassium Level 3.8, Chloride Level 94L, Carbon Dioxide Level 29, Calcium Level 9.4, Magnesium Level 1.4L CBC/BMP Laboratory Tests 08/23/17 06:19 Red Blood Count 4.76, Mean Corpuscular Volume 87.4, Mean Corpuscular Hemoglobin 28.8, Mean Corpuscular Hemoglobin Concent 32.9, Red Cell Distribution Width 13.0 , Calcium Level 9.4 Microbiology Microbiology 08/17/17 Blood Culture - Final, Complete NO GROWTH AFTER 5 DAYS 08/17/17 Blood Culture - Final, Complete NO GROWTH AFTER 5 DAYS 08/17/17 Blood Culture - Final, Complete NO GROWTH AFTER 5 DAYS 08/17/17 Urine Culture - Final, Complete GME ATTESTATION GME ATTESTATION My preceptor for this patient encounter was physically present in the building during the encounter and was fully available. As needed, all aspects of the patient interview, examination, medical decision making process, and medical care plan development were reviewed and approved by the preceptor. Preceptor is aware and concurs with the plan as stated in the body of this note and will attest to such by his/her cosignature. ATTENDING NOTE Attending Note: I have independently examined this patient and all aspects of the exam and treatment decisions have been discussed with the resident. A member of the hospitalist staff will continue to follow this patient through discharge. ANIL ARELLANO,DO Aug 23, 2017 09:42 HECTOR BURR DO Aug 24, 2017 15:18
[2017-08-23 14:00] VITALS: BP 112/65
[2017-08-23] MEDS: amLODIPine 5 MG TAB PO SCH (14:36)
[2017-08-23] MEDS: cefTRIAXone SOD 1 GM in D5W 50 ML IV SCH (16:34)
[2017-08-23] MEDS ORDERED: WARFARIN SOD 5 MG TAB PO ONE (17:00)
[2017-08-23] MEDS: SODIUM BICARBONATE 325 MG TAB PO SCH (20:40)
[2017-08-23] MEDS: MONTELUKAST 10 MG TAB PO SCH (20:40)
[2017-08-23] MEDS: SIMVASTATIN 20 MG TAB PO SCH (20:41)
[2017-08-23 22:00] VITALS: BP 152/82
[2017-08-24] MEDS: LEVOTHYROXINE 100MCG TABLET (0.1MG) PO SCH (05:38)
[2017-08-24] MEDS: LEVOTHYROXINE 88MCG TABLET (0.088 MG) PO SCH (05:38)
[2017-08-24] MEDS: ISOSORBIDE DIN (ISORDIL) 10 MG TAB PO SCH ×3 (05:38→21:07)
[2017-08-24 06:00] VITALS: BP 146/68
[2017-08-24 06:59] LABS: MEAN CORPUSCULAR HGB CONC 32.8 g/dl (32.0-36.5); MEAN CORPUSCULAR VOLUME 88.5 fl (80.0-96.0); RED CELL DISTRIBUTION WIDTH 13.1 % (11.5-14.5); WHITE BLOOD COUNT 13.1 10^3/uL (4.0-10.0)
[2017-08-24 07:11] LABS: INR 1.05
[2017-08-24 07:13] LABS: CALCIUM LEVEL 9.1 MG/DL (8.8-10.2); CREATININE FOR GFR 1.93 MG/DL (0.55-1.02); GLOMERULAR FILTRATION RATE 26.9 (>39); MAGNESIUM LEVEL 1.6 MG/DL (1.8-2.4); POTASSIUM SERUM 4.1 MEQ/L (3.5-5.1)
[2017-08-24] MEDS: NYSTATIN 500,000 U/5 ML SUSP UDC SS SCH ×4 (08:43→21:08)
[2017-08-24] MEDS: PANTOPRAZOLE 40MG INJ (PROTONIX) (C9113) IV SCH (08:43)
[2017-08-24] MEDS: HumaLOG INSULIN (NovoLOG) PER UNIT SC SCH ×4 (08:44→21:08)
[2017-08-24] MEDS: ONDANSETRON 4 MG TAB (S0181) PO PRN ×2 (08:44→20:09)
[2017-08-24] MEDS: DULoxetine 30 MG CAP (CYMBALTA) PO SCH (08:46)
[2017-08-24] MEDS: ALLOPURINOL 100 MG TAB PO SCH (08:46)
[2017-08-24] MEDS: levETIRAcetam 250MG TABLET (KEPPRA) PO SCH ×2 (08:46→21:04)
[2017-08-24] MEDS: PHENAZOPYRIDINE 100 MG TAB PO SCH ×2 (08:46→21:08)
[2017-08-24] MEDS: LORATADINE 10 MG TAB PO SCH (08:46)
[2017-08-24] MEDS: amLODIPine 5 MG TAB PO SCH (08:47)
[2017-08-24] MEDS: LOSARTAN 50 MG TAB PO SCH (08:48)
[2017-08-24] MEDS: NEBIVOLOL 5 MG TAB (BYSTOLIC) PO SCH ×2 (08:48→21:05)
[2017-08-24] MEDS: MAG SULF 1GM/100ML (MAG RUN) 1 GM in APPROPRIATE DILUENT 1 EA IV SCH ×2 (08:50→10:17)
[2017-08-24] MEDS: FUROSEMIDE 80 MG TAB PO SCH (09:00)
[2017-08-24] MEDS: fentaNYL 100 MCG/HR PATCH TOP SCH (10:16)
--- NOTE | 2017-08-24 10:59 | IPNPDOC ---
Date Seen The patient was seen on 08/24/17. Progress Note SUBJECTIVE: Patient is a 76 yo female resting comfortably. No overnight issues. this morning she c/o mild nausea without vomiting. Denies: CP, SOB, prod cough. Voiding fine and BMs regular OBJECTIVE PHYSICAL EXAMINATION: VITAL SIGNS: Please see below. GENERAL: NAD, A&OX3 HEENT: PERRLA, throat clear, neck supple CARDIOVASCULAR: RRR. RESPIRATORY: CTA Bilaterally. ABDOMINAL: soft, NT/ND, normoactive bowel sounds EXTREMITIES: trace edema, no calf tenderness NEUROLOGICAL: CN II-XII grossly intact, no deficits PSYCHOLOGICAL: negative LABORATORY DATA: Please see below. MICROBIOLOGY: Please see below. DVT prophylaxis ordered?: yes ASSESSMENT AND PLAN: This is a 76 yo with making some progress with PT and we are watch her renal function. PROBLEMS: 1. Seizure: stable /continue Keppra. 2. UTI: symptoms resolved / finish Rocephin tomorrow 3. Elevated troponin: resolved / Continue to monitor for return of pain. 4. Hypomagnesemia: Will replete today. Will continue to monitor. 5. Hypokalemia: resolved 6. Mental status changes / Metabolic encephalopathy (multifactorial, UTI/ seizure on admission): Resolved 7. Acute kidney injury: Creatinine a little worse today / hold Lasix and re- eval renal function tomorrow, consider reducing dose of lasix to 40mg daily. 8. Diabetes Mellitus: Continue fingersticks before meals and at bedtime, consistent carb diet, sliding scale insulin coverage. 9. GERD: Continue home Protonix. 10. Chronic pain: No further issues at this time. 11. Gout: Continue home allopurinol. 12. Hypothyroid: Continue home Synthroid. 13. Dyslipidemia. Continue home statin. 14. Hypertension: better controlled on current dose. 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 INR subtherapeutic. Give addtional dose of 5mg coumadin today, poor renal function will use heparin drip until therapeutic. 16. Unspecified mood disorder. Continue home Duloxetine. 17. Deconditioning: needs a few more days of PT 17. DVT prophylaxis. INR subtherapeutic for last 3 three days, start heparin drip until therapeutic on Coumadin. VS, I&O, 24H, Fishbone Vital Signs/I&O Vital Signs Date Time Temp Pulse Resp B/P (MAP) Pulse Ox O2 Delivery O2 Flow Rate FiO2 08/24/17 10:16 16 08/24/17 08:48 96 130/61 08/24/17 06:00 97.1 97 Room Air 08/20/17 04:33 2.0 Laboratory Data 24H LABS Laboratory Tests 2 08/23/17 11:20: Bedside Glucose (Misc Panel) 359H 08/23/17 16:45: Bedside Glucose (Misc Panel) 237H 08/23/17 19:57: Bedside Glucose (Misc Panel) 279H 08/24/17 06:45: Nucleated Red Blood Cells % (auto) 0.0, Prothrombin Time 13.9, Prothromb Time International Ratio 1.05, Anion Gap 13, Glomerular Filtration Rate 26.9L, Blood Urea Nitrogen 46H, Creatinine 1.93H, Sodium Level 133L, Potassium Level 4.1, Chloride Level 92L, Carbon Dioxide Level 28, Calcium Level 9.1, Magnesium Level 1.6L CBC/BMP Laboratory Tests 08/24/17 06:45 Red Blood Count 4.52, Mean Corpuscular Volume 88.5, Mean Corpuscular Hemoglobin 29.0, Mean Corpuscular Hemoglobin Concent 32.8, Red Cell Distribution Width 13.1 , Calcium Level 9.1 Microbiology Microbiology 08/17/17 Blood Culture - Final, Complete NO GROWTH AFTER 5 DAYS 08/17/17 Blood Culture - Final, Complete NO GROWTH AFTER 5 DAYS 08/17/17 Blood Culture - Final, Complete NO GROWTH AFTER 5 DAYS 08/17/17 Urine Culture - Final, Complete HECTOR BURR DO Aug 24, 2017 10:59
[2017-08-24 11:41] LABS: MEAN CORPUSCULAR HEMOGLOBIN 29.6 pg (27.0-33.0); MEAN CORPUSCULAR HGB CONC 33.2 g/dl (32.0-36.5); MEAN CORPUSCULAR VOLUME 89.1 fl (80.0-96.0); RED CELL DISTRIBUTION WIDTH 13.1 % (11.5-14.5); WHITE BLOOD COUNT 11.9 10^3/uL (4.0-10.0)
[2017-08-24 14:00] VITALS: BP 132/59
[2017-08-24] MEDS: HEPARIN DRIP 25,000 UNITS in APPROPRIATE DILUENT 1 EA IV SCH (14:55)
[2017-08-24] MEDS: WARFARIN SOD 2 MG TAB PO SCH (17:58)
[2017-08-24] MEDS ORDERED: CEFDINIR 300 MG CAP (OMNICEF) PO ONE (19:00)
[2017-08-24] MEDS: SIMVASTATIN 20 MG TAB PO SCH (21:04)
[2017-08-24] MEDS: MONTELUKAST 10 MG TAB PO SCH (21:07)
[2017-08-24] MEDS: SODIUM BICARBONATE 325 MG TAB PO SCH (21:08)
[2017-08-24 22:00] VITALS: BP 117/53
[2017-08-25 03:24] LABS: MEAN CORPUSCULAR HEMOGLOBIN 29.1 pg (27.0-33.0); MEAN CORPUSCULAR HGB CONC 33.2 g/dl (32.0-36.5); MEAN CORPUSCULAR VOLUME 87.6 fl (80.0-96.0); RED CELL DISTRIBUTION WIDTH 13.2 % (11.5-14.5); WHITE BLOOD COUNT 10.7 10^3/uL (4.0-10.0)
[2017-08-25 03:37] LABS: INR 1.3
[2017-08-25 03:49] LABS: CALCIUM LEVEL 8.5 MG/DL (8.8-10.2); CREATININE FOR GFR 1.79 MG/DL (0.55-1.02); GLOMERULAR FILTRATION RATE 29.4 (>39); MAGNESIUM LEVEL 2.1 MG/DL (1.8-2.4); POTASSIUM SERUM 3.5 MEQ/L (3.5-5.1)
[2017-08-25] MEDS: ISOSORBIDE DIN (ISORDIL) 10 MG TAB PO SCH ×3 (05:50→21:20)
[2017-08-25] MEDS: LEVOTHYROXINE 88MCG TABLET (0.088 MG) PO SCH (05:51)
[2017-08-25] MEDS: LEVOTHYROXINE 100MCG TABLET (0.1MG) PO SCH (05:51)
[2017-08-25 06:00] VITALS: BP 146/76
[2017-08-25] MEDS: PANTOPRAZOLE 40MG INJ (PROTONIX) (C9113) IV SCH (08:14)
[2017-08-25] MEDS: NYSTATIN 500,000 U/5 ML SUSP UDC SS SCH ×4 (08:14→21:19)
[2017-08-25] MEDS: HumaLOG INSULIN (NovoLOG) PER UNIT SC SCH ×4 (08:14→21:21)
[2017-08-25] MEDS: levETIRAcetam 250MG TABLET (KEPPRA) PO SCH ×2 (08:15→21:20)
[2017-08-25] MEDS: DULoxetine 30 MG CAP (CYMBALTA) PO SCH (08:15)
[2017-08-25] MEDS: amLODIPine 5 MG TAB PO SCH (08:16)
[2017-08-25] MEDS: PHENAZOPYRIDINE 100 MG TAB PO SCH ×2 (08:16→21:20)
[2017-08-25] MEDS: ALLOPURINOL 100 MG TAB PO SCH (08:16)
[2017-08-25] MEDS: LORATADINE 10 MG TAB PO SCH (08:16)
[2017-08-25] MEDS: NEBIVOLOL 5 MG TAB (BYSTOLIC) PO SCH ×2 (08:17→21:20)
[2017-08-25] MEDS: LOSARTAN 50 MG TAB PO SCH (08:17)
[2017-08-25] MEDS: ONDANSETRON 4 MG TAB (S0181) PO PRN (08:18)
[2017-08-25] MEDS: HEPARIN DRIP 25,000 UNITS in APPROPRIATE DILUENT 1 EA IV SCH (11:34)
--- NOTE | 2017-08-25 12:42 | IPN ---
DATE OF SERVICE: 08/25/2017 ATTENDING PHYSICIAN: Marek Donahue DO Luann was seen while rounding for the hospitalists. She had a witnessed seizure upon admission, a 45-second seizure, in the ambulance. A witnessed seizure in the emergency room. I make this point, as there are family members currently visiting her, and there apparently is some dispute about whether she actually had a seizure. I let them know she had witnessed seizures and has an abnormal electroencephalogram (EEG) and should be on Keppra for at least the near future. She has a urinary tract infection (UTI). Is off her intravenous (IV) antibiotic. Is on cefdinir for this. She has been having some lightheadedness when she stands. She says she is "dizzy" but further discussion shows that she feels "woozy and lightheaded." There is no vertigo. She gets no vertigo rolling over in bed. I do not think this is vestibular. She has been having nausea. She attributes this to taking her Protonix. She says after taking Protonix, she feels sick to her stomach. She currently uses Prevacid at home. She has chronic kidney disease with acute renal failure superimposed, probably from excessive diuresis. Her diuretics were held yesterday, and creatinine is improved. Her international normalized ratio (INR) is subtherapeutic again today. Warfarin dose has been increased. PHYSICAL EXAMINATION: 146/74, pulse of 82, respiratory rate 18, 94% oxygen (O2) saturation. General appearance: Resting comfortably in bed, visiting with her son. HEENT: Unremarkable. No jugular venous distention (JVD). Lungs: Decreased breath sounds. Heart: Regular rate and rhythm. No murmur. Abdomen: Soft, nontender, no masses. Nonfocal neurologic examination. LABORATORIES: INR is 1.3. Creatinine is down to 1.79. White count is 10.7. PTTs are being monitored on a regular basis. Blood sugars in the 200-300 range. IMPRESSION: 1. Seizure. I clarified the situation with the family. She did have a witnessed seizure and has an abnormal EEG and is at risk for the seizures without antiepileptic medication. 2. Acute renal failure superimposed on chronic kidney disease. Her creatinine is improved with the diuretics being held. Will continue to hold diuretics for now. 3. "Dizziness." It sounds more orthostatic than anything else. It only occurs when she is standing. It does not occur when she is in bed or with position changes while lying in bed. Her diuretics are being held. I would reduce the dose of her antihypertensives, particularly with Bystolic, but her blood pressure was very high upon arrival in the emergency room, so I am hesitant to do this. 4. Urinary tract infection. She is on cefdinir now. 5. History of deep venous thrombosis (DVT)/pulmonary embolism (PE). International normalized ratio (INR) is subtherapeutic. Give 5 mg of warfarin a day until her INR gets therapeutic. Then, we can go back towards her usual dose. I think she is on 2 mg a day as an outpatient. Heparin drip until therapeutic. 6. Diabetes. Blood sugar is elevated. I do not see where she is on any basal insulin. Will begin this. 7. Hypertension. She is on amlodipine, isosorbide, and Bystolic. Blood pressure is adequate. I am concerned she is a bit orthostatic when she is standing. Will need to keep our eye on this. 8. Acute kidney injury. Continue to hold her Lasix. Usual dose is 80 mg daily.
[2017-08-25 14:00] VITALS: BP 139/64
[2017-08-25] MEDS ORDERED: WARFARIN SOD 5 MG TAB PO SCH (17:00)
[2017-08-25] MEDS ORDERED: LEVEMIR (INSULIN DETEMIR) 1 UNITS/0.01ML SC SCH (21:00)
[2017-08-25] MEDS: SIMVASTATIN 20 MG TAB PO SCH (21:19)
[2017-08-25] MEDS: SODIUM BICARBONATE 325 MG TAB PO SCH (21:20)
[2017-08-25] MEDS: MONTELUKAST 10 MG TAB PO SCH (21:20)
[2017-08-25 22:00] VITALS: BP 156/57
[2017-08-26] MEDS: LEVOTHYROXINE 100MCG TABLET (0.1MG) PO SCH (05:37)
[2017-08-26] MEDS: LEVOTHYROXINE 88MCG TABLET (0.088 MG) PO SCH (05:37)
[2017-08-26] MEDS: ISOSORBIDE DIN (ISORDIL) 10 MG TAB PO SCH ×3 (05:37→21:17)
[2017-08-26 06:00] VITALS: BP 155/67
[2017-08-26 06:21] LABS: MEAN CORPUSCULAR HEMOGLOBIN 29.4 pg (27.0-33.0); MEAN CORPUSCULAR HGB CONC 33.2 g/dl (32.0-36.5); MEAN CORPUSCULAR VOLUME 88.5 fl (80.0-96.0); WHITE BLOOD COUNT 7.5 10^3/uL (4.0-10.0)
[2017-08-26 06:43] LABS: POTASSIUM SERUM 4.1 MEQ/L (3.5-5.1)
[2017-08-26 06:48] LABS: CALCIUM LEVEL 8.8 MG/DL (8.8-10.2); CREATININE FOR GFR 1.72 MG/DL (0.55-1.02); GLOMERULAR FILTRATION RATE 30.8 (>39)
[2017-08-26 07:50] LABS: INR 1.41
[2017-08-26] MEDS: HumaLOG INSULIN (NovoLOG) PER UNIT SC SCH ×4 (07:51→21:17)
[2017-08-26 09:00] VITALS: BP 142/64
[2017-08-26] MEDS: NYSTATIN 500,000 U/5 ML SUSP UDC SS SCH ×4 (09:23→21:17)
[2017-08-26] MEDS: LANSOPRAZOLE SUSPENSION 30 MG/10 ML ORAL SYRINGE (FIRST-LANSOPRAZOLE) PO SCH (09:23)
[2017-08-26] MEDS: LORATADINE 10 MG TAB PO SCH (09:24)
[2017-08-26] MEDS: levETIRAcetam 250MG TABLET (KEPPRA) PO SCH ×2 (09:24→21:17)
[2017-08-26] MEDS: NEBIVOLOL 5 MG TAB (BYSTOLIC) PO SCH ×2 (09:24→21:16)
[2017-08-26] MEDS: PHENAZOPYRIDINE 100 MG TAB PO SCH ×2 (09:25→21:17)
[2017-08-26] MEDS: ALLOPURINOL 100 MG TAB PO SCH (09:25)
[2017-08-26] MEDS: amLODIPine 5 MG TAB PO SCH (09:25)
[2017-08-26] MEDS: DULoxetine 30 MG CAP (CYMBALTA) PO SCH (09:25)
[2017-08-26] MEDS: LOSARTAN 50 MG TAB PO SCH (09:26)
--- NOTE | 2017-08-26 11:35 | IPN ---
DATE: 08/26/2017 Luann is seen on 4illi. She has not had any further seizures. Her activity is being limited by the lack of an effective brace for her left knee. She apparently has chronic left knee pain and had a brace in [place], [place]. She was given the brace in the emergency room here that does not work. She cannot get it on or off by herself and she cannot get off the toilet if she wears the brace. The brace that was shipped from [place] apparently does not fit right and per the physical therapist they are recommending orthopedic consult so a different brace can be ordered. No urinary tract infection (UTI) symptoms. The nausea seems to be better off the Protonix. We are still dealing with the dizziness symptoms. She tells me that she is woozy and lightheaded when she stands up. She told the physical therapist that when she looks to the left she gets vertiginous, which apparently has been going on for over 2 years. She has had some vestibular maneuvers performed, but those are limited by her inability to fully rotate. PHYSICAL EXAMINATION: 142/64, pulse 90, 94% oxygen saturation. Alert, conversant. LUNGS: Clear. HEART: Regular rhythm. ABDOMEN: Soft, nontender. Normal strength in the arms and legs. Left knee is arthritic. LABORATORY DATA: INR was 1.4. PT is being followed. CBC is stable. Creatinine has stabilized. GFR is around 30. Blood sugar is coming down. IMPRESSION: 1. Seizures. These are under control using Keppra 500 mg twice a day. 2. Left knee pain limiting ambulation. I will put an orthopedic consultation in. I have communication out to Dr. Sanderson to discuss the case. Apparently, I need to consult orthopedics before we can get a brace ordered. 3. Diabetes. Sliding scale insulin. I added basal insulin yesterday. I will increase the Detemir dose to 20 units a day. 4. Acute renal failure superimposed on chronic kidney disease. Her diuretics are still on hold. These will probably need to be restarted at some point. Renal function is stable and has improved with holding these. 5. Dizziness. I suspect that this is primarily orthostatic. She might have a vestibular component. Physical therapist is working on this. 6. Urinary tract infection (UTI). She is on cefdinir for this. 7. History of deep vein thrombosis (DVT) and pulmonary embolism. INR is still subtherapeutic. I will give her 5 mg again today, usual dose is 2 mg a day. She is on heparin drip. 8. Hypertension. Blood pressure is under good control. Her diuretics are still on hold. These might need to be restart before discharge. ADDENDUM: I reviewed her medication list. She had completed her cefdinir on 08/24/2017. She has been off antibiotic now for 2 days. I am going to repeat her urine culture to confirm cure. It has been 48 hours since her last antibiotic dose. Addendum 08/26/2017 aml
[2017-08-26] MEDS: HEPARIN SOD (PORCINE) 5000 UNITS/ML VIAL IV PRN (14:02)
[2017-08-26 14:10] VITALS: BP 163/71
[2017-08-26] MEDS: HEPARIN DRIP 25,000 UNITS in APPROPRIATE DILUENT 1 EA IV SCH (16:05)
[2017-08-26] MEDS ORDERED: WARFARIN SOD 5 MG TAB PO ONE (17:00)
[2017-08-26] MEDS: SODIUM BICARBONATE 325 MG TAB PO SCH (21:16)
[2017-08-26] MEDS: MONTELUKAST 10 MG TAB PO SCH (21:16)
[2017-08-26] MEDS: SIMVASTATIN 20 MG TAB PO SCH (21:16)
[2017-08-26] MEDS: LEVEMIR (INSULIN DETEMIR) 1 UNITS/0.01ML SC SCH (21:18)
[2017-08-26 22:00] VITALS: BP 139/64
[2017-08-27] MEDS: LEVOTHYROXINE 100MCG TABLET (0.1MG) PO SCH (05:37)
[2017-08-27] MEDS: LEVOTHYROXINE 88MCG TABLET (0.088 MG) PO SCH (05:37)
[2017-08-27] MEDS: ISOSORBIDE DIN (ISORDIL) 10 MG TAB PO SCH ×3 (05:38→21:03)
[2017-08-27 06:00] VITALS: BP 113/65
[2017-08-27 07:14] LABS: MEAN CORPUSCULAR HEMOGLOBIN 28.4 pg (27.0-33.0); MEAN CORPUSCULAR VOLUME 88.7 fl (80.0-96.0); RED CELL DISTRIBUTION WIDTH 13.1 % (11.5-14.5)
[2017-08-27 07:27] LABS: INR 1.72
[2017-08-27 07:32] LABS: CALCIUM LEVEL 9.3 MG/DL (8.8-10.2); CREATININE FOR GFR 1.43 MG/DL (0.55-1.02); GLOMERULAR FILTRATION RATE 38.1 (>39); POTASSIUM SERUM 4.1 MEQ/L (3.5-5.1)
[2017-08-27] MEDS: HumaLOG INSULIN (NovoLOG) PER UNIT SC SCH ×4 (08:33→20:41)
[2017-08-27] MEDS: DULoxetine 30 MG CAP (CYMBALTA) PO SCH (08:34)
[2017-08-27] MEDS: ALLOPURINOL 100 MG TAB PO SCH (08:34)
[2017-08-27] MEDS: PHENAZOPYRIDINE 100 MG TAB PO SCH ×2 (08:34→21:04)
[2017-08-27] MEDS: NYSTATIN 500,000 U/5 ML SUSP UDC SS SCH ×4 (08:34→21:02)
[2017-08-27] MEDS: LANSOPRAZOLE SUSPENSION 30 MG/10 ML ORAL SYRINGE (FIRST-LANSOPRAZOLE) PO SCH (08:34)
[2017-08-27] MEDS: levETIRAcetam 250MG TABLET (KEPPRA) PO SCH ×2 (08:34→21:03)
[2017-08-27] MEDS: LORATADINE 10 MG TAB PO SCH (08:34)
[2017-08-27] MEDS: fentaNYL 100 MCG/HR PATCH TOP SCH (08:35)
[2017-08-27] MEDS: LOSARTAN 50 MG TAB PO SCH (08:37)
[2017-08-27] MEDS: NEBIVOLOL 5 MG TAB (BYSTOLIC) PO SCH ×2 (08:38→21:03)
[2017-08-27] MEDS: amLODIPine 5 MG TAB PO SCH (08:38)
[2017-08-27] MEDS ORDERED: NS 1,000 ML IV SCH (11:00)
[2017-08-27] MEDS: HEPARIN SOD (PORCINE) 5000 UNITS/ML VIAL IV PRN (12:53)
[2017-08-27 14:00] VITALS: BP 144/58
[2017-08-27 14:30] VITALS: BP_SYST 123; BP_SYST 142; BP_SYST 144; BP_DIAS 57; BP_DIAS 58
[2017-08-27] MEDS ORDERED: WARFARIN SOD 3 MG TAB PO SCH (17:00)
[2017-08-27] MEDS ORDERED: WARFARIN SOD 2 MG TAB PO SCH (17:00)
[2017-08-27] MEDS: FEXOFENADINE 60 MG TAB PO SCH (18:35)
--- NOTE | 2017-08-27 18:36 | IPN ---
DATE: 08/27/2017 The patient is seen and examined. No acute events overnight. Reported mild nausea. No vomiting. Denies any chest pain, pressure, discomfort, fevers or chills. Temperature 98, pulse 86, respirations 18, blood pressure 144/58, pulse oximetry 95% on room air. LABORATORY DATA: WBC 7, hemoglobin and hematocrit 11/34.4, platelets 207. Chemistry: Sodium 136, potassium 4.1, chloride 97, bicarbonate 32, BUN 50, creatinine 1.4, PHYSICAL EXAMINATION: GENERAL: The patient is alert and oriented times three. No acute distress. HEENT: Normocephalic, atraumatic. Pupils are equal, round and reactive. CARDIAC: Regular rate and rhythm. Normal S1, S2. PULMONARY: Bilaterally clear to auscultation. ABDOMEN: Soft, nontender. Positive bowel sounds. EXTREMITIES: Trace edema in bilateral lower extremities. ASSESSMENT AND PLAN: This is a 76-year-old female patient with underlying medical history of hypertension, multiple pulmonary embolisms and deep vein thromboses, on lifelong anticoagulation with a goal of 3 to 3.5, as per patient, asthma, peripheral vascular disease, gastroesophageal reflux disease (GERD), diabetes mellitus, obesity, gout, mood disorder, hypothyroidism, dyslipidemia, chronic pain, admitted to the hospital with new onset seizure and urinary tract infection (UTI). 1. New onset seizure. Continue Keppra. MRI of the brain has been completed. Neurology has been consulted. EEG appreciated. Outpatient followup with neurology. 2. Urinary tract infection (UTI), resolved, treated. 3. Elevated troponin, resolved. Continue to monitor. 4. Hypomagnesemia, repleted. 5. Hypokalemia, resolved. 6. Altered mental status, metabolic encephalopathy. Multifactorial and possibly urinary tract infection, seizure, currently resolved. 7. Acute kidney injury. Currently at baseline. The patient's diuretic dosage was adjusted during this hospital course. 8. Diabetes. Basal bolus insulin, adjust as needed. 9. Gastroesophageal reflux disease (GERD). Continue proton pump inhibitor. 10. Chronic pain. No activation. 11. Gout. Continue allopurinol. 12. Hypothyroidism. Continue Synthroid. 13. Dyslipidemia. Continue statin. 14. Hypertension. Continue current medication. 15. Deconditioning. Physical therapy (PT). 16. Osteoarthritis. Orthopedics has been consulted. Knee bracing. 17. Mood disorder. Continue Cymbalta. 18. Deep vein thrombosis (DVT) prophylaxis. The patient is on heparin drip, bridging to Coumadin and adjust Coumadin dosage. Followup INR. 19. Seasonal allergies. Continue Amie. DISPOSITION: Pending therapeutic INR and physical therapy.
[2017-08-27 21:00] VITALS: BP_SYST 122; BP_SYST 147; BP_SYST 148; BP_DIAS 58; BP_DIAS 65
[2017-08-27] MEDS: MONTELUKAST 10 MG TAB PO SCH (21:03)
[2017-08-27] MEDS: SIMVASTATIN 20 MG TAB PO SCH (21:04)
[2017-08-27] MEDS: SODIUM BICARBONATE 325 MG TAB PO SCH (21:04)
[2017-08-27] MEDS: LEVEMIR (INSULIN DETEMIR) 1 UNITS/0.01ML SC SCH (21:05)
[2017-08-27 22:00] VITALS: BP 147/65
[2017-08-28] MEDS: HEPARIN DRIP 25,000 UNITS in APPROPRIATE DILUENT 1 EA IV SCH (03:08)
[2017-08-28] MEDS: LEVOTHYROXINE 88MCG TABLET (0.088 MG) PO SCH (06:31)
[2017-08-28] MEDS: LEVOTHYROXINE 100MCG TABLET (0.1MG) PO SCH (06:31)
[2017-08-28] MEDS: ISOSORBIDE DIN (ISORDIL) 10 MG TAB PO SCH ×3 (06:32→22:30)
[2017-08-28 06:36] VITALS: BP_SYST 136; BP_SYST 142; BP_SYST 144; BP_DIAS 58; BP_DIAS 63; BP_DIAS 65
[2017-08-28 06:44] LABS: MEAN CORPUSCULAR HEMOGLOBIN 29.1 pg (27.0-33.0); MEAN CORPUSCULAR HGB CONC 32.4 g/dl (32.0-36.5); MEAN CORPUSCULAR VOLUME 89.8 fl (80.0-96.0); RED CELL DISTRIBUTION WIDTH 12.9 % (11.5-14.5); WHITE BLOOD COUNT 6.5 10^3/uL (4.0-10.0)
[2017-08-28 06:54] LABS: INR 1.7
[2017-08-28 06:59] LABS: CALCIUM LEVEL 9.2 MG/DL (8.8-10.2); CREATININE FOR GFR 1.41 MG/DL (0.55-1.02); GLOMERULAR FILTRATION RATE 38.7 (>39); POTASSIUM SERUM 4.2 MEQ/L (3.5-5.1)
[2017-08-28] MEDS: LANSOPRAZOLE SUSPENSION 30 MG/10 ML ORAL SYRINGE (FIRST-LANSOPRAZOLE) PO SCH (08:06)
[2017-08-28] MEDS: HumaLOG INSULIN (NovoLOG) PER UNIT SC SCH ×4 (08:06→21:00)
[2017-08-28] MEDS: LOSARTAN 50 MG TAB PO SCH (08:07)
[2017-08-28] MEDS: NYSTATIN 500,000 U/5 ML SUSP UDC SS SCH ×4 (08:07→22:30)
[2017-08-28] MEDS: FEXOFENADINE 60 MG TAB PO SCH (08:07)
[2017-08-28] MEDS: PHENAZOPYRIDINE 100 MG TAB PO SCH ×2 (08:08→22:28)
[2017-08-28] MEDS: LORATADINE 10 MG TAB PO SCH (08:08)
[2017-08-28] MEDS: levETIRAcetam 250MG TABLET (KEPPRA) PO SCH ×2 (08:08→22:30)
[2017-08-28] MEDS: NEBIVOLOL 5 MG TAB (BYSTOLIC) PO SCH ×2 (08:08→22:29)
[2017-08-28] MEDS: DULoxetine 30 MG CAP (CYMBALTA) PO SCH (08:09)
[2017-08-28] MEDS: ALLOPURINOL 100 MG TAB PO SCH (08:09)
[2017-08-28] MEDS: amLODIPine 5 MG TAB PO SCH (08:09)
[2017-08-28] MEDS: FUROSEMIDE 40 MG TAB PO SCH (09:25)
[2017-08-28] MEDS ORDERED: HEPARIN DRIP 25,000 UNITS in APPROPRIATE DILUENT 1 EA IV SCH (10:13)
[2017-08-28] MEDS ORDERED: LOVE0.6I2 SC (13:48)
[2017-08-28] MEDS ORDERED: ISOS30TA4 PO (13:48)
[2017-08-28] MEDS ORDERED: KEPP250T5 PO (13:48)
[2017-08-28] MEDS ORDERED: FURO40TA2 PO (13:48)
--- NOTE | 2017-08-28 15:08 | IPN ---
DATE: 08/28/2017 Patient seen and examined. No acute events overnight. Tolerating physical therapy. Denies any chest pain, pressure, or discomfort, fevers, or chills. VITAL SIGNS: Temperature 97.7, pulse 79, respirations 18, blood pressure 144/65, pulse oximetry 97, orthostatic currently negative. LABORATORY DATA: WBC 6.5, hemoglobin and hematocrit 10.9/33.6, platelets 191. Chemistry: Sodium 139, potassium 4.2, chloride 102, bicarbonate 30, BUN 42, creatinine 1.4. PHYSICAL EXAMINATION: GENERAL: Patient alert and oriented times three in no acute distress. HEENT: Normocephalic, atraumatic. Pupils equal, round, and reactive. CARDIAC: Regular rate and rhythm. Normal S1, S2. PULMONARY: Bilaterally clear to auscultation. ABDOMEN: Soft and nontender. Positive bowel sounds. Colostomy in place. EXTREMITIES: Trace edema, bilateral lower extremities. ASSESSMENT AND PLAN: This is a 76-year-old female patient with underlying medical history of hypertension, multiple pulmonary emboli, and deep vein thrombosis (DVT), on life-long anticoagulation with a goal INR of 3-3.5. As per patient, asthma, peripheral vascular disease, gastroesophageal reflux disease (GERD), diabetes, obesity, gout, mood disorder, hypothyroidism, dyslipidemia, chronic pain, admitted to the hospital with new-onset seizures, urinary tract infection (UTI). 1. New-onset seizure. Continue Keppra. MRI of the brain and electroencephalogram (EEG) appreciated. Neurology consulted. Outpatient followup with neurology. 2. UTI, currently resolved and treated. 3. Elevated troponin, resolved. Continue to monitor. 4. Hypomagnesemia, repleted. 5. Hypokalemia, resolved. 6. Altered mental status, metabolic encephalopathy, multifactorial, UTI, seizures, current resolved. 7. Acute kidney injury. Patient's diuretic has been adjusted and restarted. Currently improved. Continue to follow. 8. Diabetes. Basal bolus insulin. Adjust as needed. 9. GERD. Continue proton pump inhibitor (PPI). 10. Chronic pain. Continue current medication. 11. Gout. Continue allopurinol. 12. Hypothyroidism. Continue Synthroid. 13. Dyslipidemia. Continue statin. 14. Hypertension. Continue current medication. 15. Deconditioning. Physical therapy. 16. Osteoarthritis. Orthopedics consulted for knee bracing. 17. Mood disorder. Continue Cymbalta. 18. History of DVT/pulmonary embolism (PE), multiple episodes. Patient on heparin drip. Coumadin has been adjusted. Followup INR. Discussed he case with pharmacy. If patient's kidney function improves or stays the same, patient could be discharged with Lovenox twice a day for bridging to Coumadin as outpatient. Will monitor kidney function tomorrow. 19. Seasonal allergies. Continue Amie. 20. DVT prophylaxis. Patient on heparin drip, bridging to Coumadin. Followup INR. DISPOSITION: Pending physical therapy and therapeutic INR. MTDD
[2017-08-28 16:32] VITALS: BP_SYST 130; BP_SYST 136; BP_SYST 140; BP_DIAS 54; BP_DIAS 56
[2017-08-28] MEDS ORDERED: WARFARIN SOD 3 MG TAB PO SCH (17:00)
[2017-08-28] MEDS ORDERED: WARFARIN SOD 5 MG TAB PO SCH (17:00)
[2017-08-28 17:14] LABS: INR 1.74
[2017-08-28] MEDS ORDERED: LEVEMIR (INSULIN DETEMIR) 1 UNITS/0.01ML SC SCH (21:00)
[2017-08-28 22:00] VITALS: BP 139/65
[2017-08-28] MEDS: SIMVASTATIN 20 MG TAB PO SCH (22:29)
[2017-08-28] MEDS: SODIUM BICARBONATE 325 MG TAB PO SCH (22:29)
[2017-08-28] MEDS: MONTELUKAST 10 MG TAB PO SCH (22:30)
[2017-08-29 00:17] LABS: INR 1.84
[2017-08-29 04:35] LABS: INR 1.8
[2017-08-29] MEDS: LEVOTHYROXINE 88MCG TABLET (0.088 MG) PO SCH (05:50)
[2017-08-29] MEDS: LEVOTHYROXINE 100MCG TABLET (0.1MG) PO SCH (05:51)
[2017-08-29] MEDS: ISOSORBIDE DIN (ISORDIL) 10 MG TAB PO SCH ×2 (05:51→13:36)
[2017-08-29 06:00] VITALS: BP 140/78
[2017-08-29 07:22] LABS: MEAN CORPUSCULAR HEMOGLOBIN 29.6 pg (27.0-33.0); MEAN CORPUSCULAR HGB CONC 32.8 g/dl (32.0-36.5); MEAN CORPUSCULAR VOLUME 90.1 fl (80.0-96.0); PLATELET COUNT, AUTOMATED 188 10^3/uL (150-450); RED CELL DISTRIBUTION WIDTH 13.1 % (11.5-14.5); WHITE BLOOD COUNT 6.9 10^3/uL (4.0-10.0)
[2017-08-29] MEDS: HumaLOG INSULIN (NovoLOG) PER UNIT SC SCH ×2 (07:30→12:16)
[2017-08-29 07:35] LABS: INR 1.9
[2017-08-29 07:53] LABS: CALCIUM LEVEL 9.3 MG/DL (8.8-10.2); CREATININE FOR GFR 1.38 MG/DL (0.55-1.02); GLOMERULAR FILTRATION RATE 39.7 (>39); POTASSIUM SERUM 4.1 MEQ/L (3.5-5.1)
[2017-08-29 08:15] VITALS: BP_SYST 134; BP_SYST 138; BP_SYST 142; BP_DIAS 58; BP_DIAS 60
[2017-08-29] MEDS: NYSTATIN 500,000 U/5 ML SUSP UDC SS SCH ×2 (09:31→13:36)
[2017-08-29] MEDS: LOSARTAN 50 MG TAB PO SCH (09:32)
[2017-08-29] MEDS: PHENAZOPYRIDINE 100 MG TAB PO SCH (09:32)
[2017-08-29] MEDS: LORATADINE 10 MG TAB PO SCH (09:32)
[2017-08-29] MEDS: DULoxetine 30 MG CAP (CYMBALTA) PO SCH (09:32)
[2017-08-29] MEDS: LANSOPRAZOLE SUSPENSION 30 MG/10 ML ORAL SYRINGE (FIRST-LANSOPRAZOLE) PO SCH (09:32)
[2017-08-29] MEDS: levETIRAcetam 250MG TABLET (KEPPRA) PO SCH (09:32)
[2017-08-29] MEDS: ALLOPURINOL 100 MG TAB PO SCH (09:33)
[2017-08-29] MEDS: amLODIPine 5 MG TAB PO SCH (09:33)
[2017-08-29] MEDS: FUROSEMIDE 40 MG TAB PO SCH (09:33)
[2017-08-29] MEDS: FEXOFENADINE 60 MG TAB PO SCH (09:33)
[2017-08-29] MEDS: NEBIVOLOL 5 MG TAB (BYSTOLIC) PO SCH (09:34)
[2017-08-29] MEDS ORDERED: COUM2TAB22 PO (10:52)
[2017-08-29] MEDS ORDERED: ENOXAPARIN 80 MG/0.8 ML SYRINGE (J1650) SC SCH (11:00)
[2017-08-29 13:36] VITALS: BP 140/78
[2017-08-29 14:00] VITALS: BP 117/55
--- NOTE | 2017-08-29 14:09 | DSES ---
DATE OF ADMISSION: 08/17/2017 DATE OF DISCHARGE: 08/29/17 This is a 76-year-old fem/frankie patient who was recently seen in the emergency room on 08/06/2017. At that time, the patient presented with left knee pain and was found to have left knee strain and was provided with a brace and was noted to have difficulty with ambulating and was discharged home to self care. Since that time, the patient has reported being tired and malaise for the last 4 days. The patient, at that time, was brought to [facility], appears to be postictal and follows some basic commands and answers yes and no questions on occasions after yelling into her ears and sternal rubs. The patient reports having urinary symptoms. Otherwise denies any bowel symptoms, sick contacts. As per emergency medical services (EMS) documentation, the patient was malaise en route and had a 45 second seizure. Upon presentation in the emergency room, the patient did have another seizure lasting about 1 to 2 minutes and did receive IV Ativan and had no further seizure since then. At the time of admission, the patient is awake, occasionally makes eye contact and answers yes or no questions once encouraged. HOSPITAL COURSE: The patient was admitted to the hospital. Echocardiogram was done. EEG was also done. Neurology was consulted. The patient was placed on Keppra. The patient's urinary tract infection was treated. The patient's kidney function was monitored. IV fluids were given. The patient initially was placed on heparin drip given history of multiple DVT and PE and worsening kidney function and seizure. Also reported troponin leakage, which was monitored as well. Insulin was provided. Fingerstick was monitored. Orthostatic vital signs were followed and blood pressure medication was adjusted as well. The patient's kidney function progressively improved throughout the hospital stay. Orthopedics was consulted for osteoarthritis and knee sprain. Subsequently, braces were ordered for the patient. The patient's condition progressively improved with improvement in kidney function, currently being bridged back from heparin to Coumadin. Given the patient has a flight on 08/30/2017 back to [place], decision was made, given the patient's kidney function has improved switched the patient to Lovenox to be bridged to Coumadin. The patient is agreeable with the plan and reported that she will be able to followup with her primary doctor on Friday to check her INR. The patient reported that her primary doctor in [place] will be able to check her INR on Friday. The patient currently feels much improved, almost back to baseline. Tolerating physical therapy (PT). Ready for discharge for further care as an outpatient. VITAL SIGNS: Temperature 97.9, pulse 74, respirations 20, blood pressure 140/78 , pulse oximetry 99% on room air. GENERAL: The patient is alert, comfortable, in no acute distress. HEENT: Normocephalic, atraumatic. Pupils are equal, round and reactive. CARDIAC: Regular rate and rhythm. Normal S1, S2. PULMONARY: Bilaterally clear to auscultation. ABDOMEN: Soft, nontender. Positive bowel sounds. Colostomy in place. EXTREMITIES: Trace edema of bilateral lower extremities. LABORATORY DATA: WBC 6.9, hemoglobin and hematocrit 10.5/32, platelets 188. Chemistry: Sodium 138, potassium 4.1, chloride 98, bicarbonate 33, BUN 36, creatinine 1.38. DISCHARGE MEDICATIONS: - Lovenox 80 mg subcutaneously twice a day - Lasix 40 mg by mouth daily - isosorbide mononitrate 30 mg by mouth daily - Keppra 500 mg by mouth twice a day - Coumadin 4 mg by mouth daily for the and and then back to 2 mg by mouth daily for and and check INR with primary care provider on the - hydrocodone/acetaminophen 10/325 by mouth every 4 hours as needed - allopurinol 100 mg by mouth daily - duloxetine 30 mg by mouth daily - fentanyl 100 mcg transdermal every 3 days - glimepiride 8 mg by mouth daily - lansoprazole 10 mg by mouth daily - Synthroid 188 mcg by mouth every morning - losartan 100 mg by mouth daily - Montelukast 10 mg by mouth at night - Bystolic 10 mg by mouth twice a day - Zocor 20 mg by mouth at night - sodium bicarbonate 650 mg by mouth at night DISCHARGE INSTRUCTIONS: The patient is instructed to followup with primary care provider on Friday for INR check and return to the hospital if symptoms worsen. Estimated time spent coordinating care and discharging the patient was 35 minutes. [facility]
== END 2017-08-29 16:03 | disposition home or self-care (01) | DRG 100 ==
LOC: EDSEX 13:59 → M ED 13:59 → EDBD 13:59 → M ED INP 17:34 → M PCU 22:42 → M MSPAV 08-20 14:14
PROVIDERS: ADMIT Internal Medicine; ATTEND Hospitalist
DX: G40.409 Other generalized epilepsy and epileptic syndromes, not intractable, without status epilepticus (principal); G93.40 Encephalopathy, unspecified; N39.0 Urinary tract infection, site not specified; N17.9 Acute kidney failure, unspecified; I10 Essential (primary) hypertension; Z86.711 Personal history of pulmonary embolism; Z86.718 Personal history of other venous thrombosis and embolism; M19.90 Unspecified osteoarthritis, unspecified site; Z79.899 Other long term (current) drug therapy; Z79.01 Long term (current) use of anticoagulants; J45.909 Unspecified asthma, uncomplicated; I73.9 Peripheral vascular disease, unspecified; K21.9 Gastro-esophageal reflux disease without esophagitis; M10.9 Gout, unspecified; E66.9 Obesity, unspecified; E03.9 Hypothyroidism, unspecified; E78.5 Hyperlipidemia, unspecified; G89.29 Other chronic pain; F39 Unspecified mood [affective] disorder; Z88.8 Allergy status to other drugs, medicaments and biological substances; Z88.5 Allergy status to narcotic agent; Z91.038 Other insect allergy status; E11.9 Type 2 diabetes mellitus without complications; E83.42 Hypomagnesemia; R74.8 Abnormal levels of other serum enzymes; E87.6 Hypokalemia; M25.562 Pain in left knee